=== PATIENT | male | born 1940 | race Caucasian/White ===

== ENCOUNTER 2018-10-05 21:42 | Inpatient (IN) ==
[2018-10-05] MEDS ORDERED: Aspirin 81 MG TAB.CHEW PO ONE (22:06)
[2018-10-05] MEDS ORDERED: Nitroglycerin 0.4 MG TAB.SUBL SL PRN ×2 (22:06→23:59)
--- NOTE | 2018-10-05 22:09 | Emergency Department Note ---
Disposition Clinical Impression: Chest pain Qualifiers: Chest pain type: unspecified Qualified Code(s): R07.9 - Chest pain, unspecified Disposition: Home, Self-Care Condition: Serious Time of Disposition: 23:25 Chest Pain HPI - General Chief Complaint: ED Chest Pain Stated Complaint: Chest Pain Time Seen by Provider: 10/05/18 21:59 Source: patient Mode of arrival: private vehicle Limitations: no limitations Vital Signs Reviewed: Yes Nursing Notes Reviewed: Yes - History of Present Illness HPI Narrative: 78-year-old male with past medical history of quadruple bypass in 2009, 2 stents 2 years ago, a failed stress test 2 weeks ago. Patient states that his chest pressure started sometime after lunch and is accompanied with shortness of breath but no nausea, vomiting, diaphoresis, lightheadedness. He states it is bothersome enough that he does not feel he can do anything. Severity scale (1-10): 0 - Related Data Home Medications Medication Instructions Recorded Confirmed Acetaminophen [Acetaminophen ER] 650 mg PO TID PRN 05/30/17 10/05/18 Aspirin [Lo-Dose Aspirin EC] 81 mg PO DAILY 05/30/17 10/05/18 Insulin Glargine,Hum.rec.anlog 45 unit SQ HS 05/30/17 10/05/18 [Lantus Solostar] Insulin LISPRO [Humalog Kwikpen 20 - 21 unit SQ TID 05/30/17 10/05/18 U-100] Multivitamin with Iron 1 each PO DAILY 05/30/17 10/05/18 [Multivitamins with Iron] Nitroglycerin [Nitrostat] 0.4 mg SL PRN PRN 05/30/17 10/05/18 Oxycodone HCl/Acetaminophen 2 each PO BID 05/30/17 10/05/18 [Percocet 5-325 mg Tablet] Gabapentin [Neurontin] 600 mg PO BID 07/03/17 10/05/18 Metoprolol XL (24 HR) Succ [Toprol 25 mg PO DAILY 07/03/17 10/05/18 Xl] Pantoprazole Sodium [Protonix] 40 mg PO DAILY 07/03/17 10/05/18 Isosorbide MONOnitrate [Isosorbide 60 mg PO DAILY 10/05/18 10/05/18 Mononitrate ER] Allergies Allergy/AdvReac Type Severity Reaction Status Date / Time ciprofloxacin [From Cipro] Allergy Weakness Verified 05/30/17 07:40 rosuvastatin [From Crestor] Allergy Muscle Pain Verified 05/30/17 07:40 Review of Systems: In addition to that documented in the HPI above, the additional ROS was obtained: Constitutional: Denies fevers or chills Eyes: Denies vision changes ENMT: Denies sore throat CV: Reports chest pain Resp: Reports SOB GI: Denies vomiting or diarrhea : Denies painful urination MSK: Denies recent trauma Skin: Denies new rashes Neuro: Denies new numbness or tingling or weakness Endocrine: Denies unexpected weight loss Heme: Denies bleeding disorders Chest Pain PMH - Past Medical History Medical history: Reports: arthritis, cancer, coronary artery disease, diabetes, hyperlipidemia, hypertension, osteoporosis Surgical history: Reports: angioplasty/stent, colectomy, coronary bypass (CABG), herniorrhaphy Psychiatric history: Reports: no psych history - Social History Smoking Status: Never smoker Alcohol use: Reports: none Drug use: Reports: none Physical Exam General: A&O x 3. No acute distress. Appears anxious. Well developed, well nourished. Head: atraumatic, normocephalic. ENT: No conjunctival injection, no scleral icterus. PERRLA. EOMI. Oropharynx non- erythematous. mucous membranes moist. Neuro: No focal deficits, no speech deficit, no facial droop, mentating well. BUE/BLE Str 5/5. Pulm: Lungs CTAB A/P. No wheezes, rales, ronchi. Cardio: RRR no m/r/g. Chest not tender to palpation. Abd: Soft, non-distended. Normoactive bowel sounds. Non-tender to palpation. No guarding. Non rigid. Extremities: Radial pulses 2+ truman, dorsalis pedis/posterior tibialis 2+ truman. No LE edema. No cyanosis, clubbing. Skin: warm, dry, intact. No rashes. Psych: Appropriate mood and affect. Answers questions appropriately. Cooperative with exam. - General Limitations: no limitations General appearance: alert Course - Consultations Consultation #1: Dr diaz who recommended plavix and heparin and that if he had continued pain to activate the [employer] Dr colon asked for transdermal nitro patch for blood pressure control. Time: 23:11 Vital Signs Temperature 98.2 F 10/05/18 21:46 Pulse Rate 83 10/05/18 21:46 Respiratory Rate 19 10/05/18 21:46 Blood Pressure 173/107 10/05/18 21:46 O2 Sat by Pulse Oximetry 97 10/05/18 21:46 Temperature 98.2 F 10/05/18 21:46 Pulse Rate 64 10/05/18 23:55 Respiratory Rate 14 10/05/18 23:55 Blood Pressure 165/85 10/05/18 23:55 O2 Sat by Pulse Oximetry 100 10/05/18 23:55 Oxygen Delivery Oxygen Delivery Room Air Chest Pain - MDM Narrative Medical decision making narrative: 78-year-old male with significant cardiac history presents with chest tightness that has been going on today since after lunch. We will obtain chest x-ray, troponin, basic laboratory workup. EKG is concerning for signs consistent with ischemia we will contact cardiology. Patient's troponin was elevated at 0.44, cardiology wanted the patient to be started on heparin, Plavix, transdermal nitroglycerin. Cardiology did not think that the patient needed to be taken to the catheter lab this evening but they did want to see him in the morning and reevaluate. Patient was admitted to the hospitalist Dr. Garcia who agreed to accept the patient to his service. During the course of treatments patient's chest pain was resolved. Results of the workup including any imaging and/or labwork was shared with the patient at bedside. Patient was given an opportunity to ask questions at bedside and all of their concerns were addressed. Patient verbalized understanding and agreement with plan of care. Pt remained stable while in the department. - Medical Records Medical records reviewed: Yes I reviewed the patient's medical records. - Lab Data Lab results reviewed: Yes I reviewed the patient's lab results. Result diagrams: 10/05/18 22:04 10/05/18 22:04 Lab Results 10/05/18 10/05/18 10/05/18 Range/Units 22:04 22:04 22:04 WBC 6.0 (4.3-11.1) K/mcL RBC 4.36 (4.19-5.50) M/mcL Hgb 13.2 (12.9-16.9) g/dL Hct 40.7 (37.5-50.1) % MCV 93.3 (83.0-100.0) fL MCH 30.3 (28.0-33.3) pg MCHC 32.4 (31.6-35.5) g/dL RDW 12.7 (11.5-14.5) % Plt Count 251 (140-400) K/mcL MPV 9.6 (9.4-12.4) fL Immature Gran % 0.3 (0-4) % Seg Neutrophils % 55.2 % Lymphocytes % 34.1 % Monocytes % 8.3 % Eosinophils % 1.8 % Basophils % 0.3 % Neutrophils # 3.3 (1.6-8.9) K/mcL Lymphocytes # 2.1 (0.6-4.6) K/mcL Monocytes # 0.5 (0.0-1.3) K/mcL Eosinophils # 0.1 (0.0-0.6) K/mcL Basophils # 0.0 (0.0-0.2) K/mcL PT 10.6 (9.4-12.1) Seconds INR 0.9 APTT 32.0 (26.0-36.0) Seconds Heparin Anti-Xa, Unfract 0.02 L (0.30-0.70) IU/mL Sodium (136-145) mEq/L Potassium (3.5-5.1) mEq/L Chloride (98-107) mEq/L Carbon Dioxide (23-29) mEq/L BUN (8-23) mg/dL Creatinine (0.70-1.30) mg/dL Est GFR ( Amer) (> 60) Est GFR (Non-Af Amer) (> 60) BUN/Creatinine Ratio (6-26) Glucose (70-105) mg/dL Calculated Osmolality (280-300) Calcium (8.6-10.3) mg/dL Total Bilirubin 0.1 L (0.3-1.0) mg/dL Direct Bilirubin 0.1 (0.0-0.2) mg/dL Indirect Bilirubin 0.0 (0.0-1.2) mg/dL AST 33 (13-39) Units/L ALT 27 (7-52) Units/L Alkaline Phosphatase 77 (34-104) Units/L Troponin I (< 0.04) ng/mL Serum Total Protein 6.9 (6.4-8.9) g/dL Albumin 4.2 (3.5-5.7) g/dL Globulin 2.7 (2.4-3.5) g/dL Albumin/Globulin Ratio 1.6 (1.1-2.2) Lipase 16 (11-82) Units/L 10/05/18 Range/Units 22:04 WBC (4.3-11.1) K/mcL RBC (4.19-5.50) M/mcL Hgb (12.9-16.9) g/dL Hct (37.5-50.1) % MCV (83.0-100.0) fL MCH (28.0-33.3) pg MCHC (31.6-35.5) g/dL RDW (11.5-14.5) % Plt Count (140-400) K/mcL MPV (9.4-12.4) fL Immature Gran % (0-4) % Seg Neutrophils % % Lymphocytes % % Monocytes % % Eosinophils % % Basophils % % Neutrophils # (1.6-8.9) K/mcL Lymphocytes # (0.6-4.6) K/mcL Monocytes # (0.0-1.3) K/mcL Eosinophils # (0.0-0.6) K/mcL Basophils # (0.0-0.2) K/mcL PT (9.4-12.1) Seconds INR APTT (26.0-36.0) Seconds Heparin Anti-Xa, Unfract (0.30-0.70) IU/mL Sodium 130 L (136-145) mEq/L Potassium 4.2 (3.5-5.1) mEq/L Chloride 99 (98-107) mEq/L Carbon Dioxide 23 (23-29) mEq/L BUN 23 (8-23) mg/dL Creatinine 0.97 (0.70-1.30) mg/dL Est GFR ( Amer) > 60 (> 60) Est GFR (Non-Af Amer) > 60 (> 60) BUN/Creatinine Ratio 24 (6-26) Glucose 266 H (70-105) mg/dL Calculated Osmolality 283 (280-300) Calcium 9.3 (8.6-10.3) mg/dL Total Bilirubin (0.3-1.0) mg/dL Direct Bilirubin (0.0-0.2) mg/dL Indirect Bilirubin (0.0-1.2) mg/dL AST (13-39) Units/L ALT (7-52) Units/L Alkaline Phosphatase (34-104) Units/L Troponin I 0.44 H* (< 0.04) ng/mL Serum Total Protein (6.4-8.9) g/dL Albumin (3.5-5.7) g/dL Globulin (2.4-3.5) g/dL Albumin/Globulin Ratio (1.1-2.2) Lipase (11-82) Units/L - Radiology Data Radiology results reviewed: Yes I reviewed the patient's radiology results. Chest X-Ray 10/05/18 22:06 IMPRESSION: New elevation of right hemidiaphragm when compared to the previous examination on 03/17/2009. No evidence of focal consolidation, pneumothorax, or significant pleural effusion. Left basilar atelectasis and/or scarring. D/ / 10/05/2018 22:44:26 Tadeo Suh MD / fede Interpreting Provider: Tadeo Suh MD - EKG Data EKG attestation: Yes I reviewed and interpreted this EKG. EKG results narrative: 2138: HR 64, rhythm sinus, axis normal. CT 289 and prolonged. QRS 98, QTc 436. 2mm ST elevation in aVR with ST depressions in I, II, V3-V6. 2147: HR 78, rhythm sinus, axis normal. CT 295 and prolonged. QRS 88, QTc 380. 2mm ST elevation in aVR with ST depressions in I, II, aVL, V3-V6. When compared to previous EKG dated 05/30/18, there is first degree block on previous study without any evidence of ST changes. Heart Score - Score History: Highly Suspicious EKG: Significant ST-Depression Age: Greater than 65 Risk Factors: Equal/Greater than 3 risk factor or history of atherosclerotic disease Troponin: Greater than 3x normal limit HEART Score Total: 10 Attestation Statement - Attestation Attestation: I have seen this patient with the resident physician, I have personally evalu ated this patient. I had reviewed the chart and document dictation by the resident physician and aM in agreement with the information documented by the resident physician. Please see documentation by the resident physician for complete chart including past medical history, family medical history, review of systems, current history and physical and laboratory and imaging studies. I was present for all procedures, provided direct supervision for all procedures, was present for the entirety of all procedures and provided direct guidance during the procedures. Please see documentation by the resident physician for any procedures performed. I have reviewed all interpretations of EKGs, and reviewed all EKGs performed on patient's as well. I have also reviewed reports of imaging as provided by radiology.
[2018-10-05 22:23] LABS: Basophils % 0.3 %; Eosinophils # 0.1 K/mcL (0.0-0.6); Eosinophils % 1.8 %; Hematocrit 40.7 % (37.5-50.1); Hemoglobin 13.2 g/dL (12.9-16.9); Immature Granulocytes % 0.3 % (0-4); Lymphocytes # 2.1 K/mcL (0.6-4.6); Lymphocytes % 34.1 %; Mean Corpuscular HGB Conc 32.4 g/dL (31.6-35.5); Mean Corpuscular Hemoglobin 30.3 pg (28.0-33.3); Mean Corpuscular Volume 93.3 fL (83.0-100.0); Mean Platelet Volume 9.6 fL (9.4-12.4); Monocytes # 0.5 K/mcL (0.0-1.3); Monocytes % 8.3 %; Neutrophils # 3.3 K/mcL (1.6-8.9); Platelet Count 251 K/mcL (140-400); Red Blood Count 4.36 M/mcL (4.19-5.50); Red Cell Distribution Width 12.7 % (11.5-14.5); Segmented Neutrophils % 55.2 %
[2018-10-05 22:31] LABS: INR 0.9; Prothrombin Time 10.6 Seconds (9.4-12.1)
[2018-10-05 22:44] LABS: BUN/Creatinine Ratio 24 (6-26); Blood Urea Nitrogen 23 mg/dL (8-23); Calcium 9.3 mg/dL (8.6-10.3); Carbon Dioxide 23 mEq/L (23-29); Chloride 99 mEq/L (98-107); Glucose 266 mg/dL (70-105); Osmolality,Calculated 283 (280-300); Potassium 4.2 mEq/L (3.5-5.1); Sodium 130 mEq/L (136-145); eGFR For African Americans > 60 (> 60); eGFR For Non-African Americans > 60 (> 60)
[2018-10-05 22:47] LABS: Albumin 4.2 g/dL (3.5-5.7); Albumin/Globulin Ratio 1.6 (1.1-2.2); Bilirubin,Direct 0.1 mg/dL (0.0-0.2); Bilirubin,Total 0.1 mg/dL (0.3-1.0); Globulin 2.7 g/dL (2.4-3.5); Total Protein 6.9 g/dL (6.4-8.9)
[2018-10-05 22:48] LABS: Troponin I 0.44 ng/mL (< 0.04)
[2018-10-05] MEDS ORDERED: *HR* Heparin 5,000 UNIT/ML VIAL IVP ONE (22:49)
[2018-10-05] MEDS ORDERED: *HR* Heparin 5,000 UNIT/ML VIAL IVP PRN ×2 (22:49)
[2018-10-05] MEDS ORDERED: Nitroglycerin 0.4 MG PATCH.TD24 TD STA (23:10)
[2018-10-05 23:16] LABS: Heparin anti-factor XA UFH 0.02 IU/mL (0.30-0.70)
--- NOTE | 2018-10-05 23:32 | Emergency Department Note ---
Disposition Clinical Impression: Chest pain Qualifiers: Chest pain type: unspecified Qualified Code(s): R07.9 - Chest pain, unspecified Disposition: Home, Self-Care Condition: Serious Referrals: Flako Solorzano DO [Primary Care Provider] - Forms: ED Satisfaction Letter Time of Disposition: 23:32 Chest Pain HPI - General Chief Complaint: ED Chest Pain Stated Complaint: Chest Pain Time Seen by Provider: 10/05/18 21:59 Source: patient Mode of arrival: private vehicle Limitations: no limitations Vital Signs Reviewed: Yes Nursing Notes Reviewed: Yes - History of Present Illness Severity scale (1-10): 0 - Related Data Home Medications Medication Instructions Recorded Confirmed Acetaminophen [Acetaminophen ER] 650 mg PO TID 05/30/17 07/03/17 Aspirin [Lo-Dose Aspirin EC] 81 mg PO DAILY 05/30/17 07/03/17 Insulin Glargine,Hum.rec.anlog 40 unit SQ HS 05/30/17 07/03/17 [Lantus Solostar] Insulin LISPRO [Humalog Kwikpen 100 unit SQ TID 05/30/17 07/03/17 U-100] Multivitamin with Iron 1 each PO DAILY 05/30/17 07/03/17 [Multivitamins with Iron] Nitroglycerin [Nitrostat] 0.4 mg SL PRN PRN 05/30/17 07/03/17 Oxycodone HCl/Acetaminophen 2 each PO BID 05/30/17 07/03/17 [Percocet 5-325 mg Tablet] Gabapentin [Neurontin] 600 mg PO BID 07/03/17 07/03/17 Metoprolol XL (24 HR) Succ [Toprol 25 mg PO DAILY 07/03/17 07/03/17 Xl] Pantoprazole Sodium [Protonix] 40 mg PO DAILY 07/03/17 07/03/17 Previous Rx's Medication Instructions Recorded Clopidogrel Bisulfate [Plavix] 75 mg PO DAILY #30 tablet 05/30/17 Allergies Allergy/AdvReac Type Severity Reaction Status Date / Time ciprofloxacin [From Cipro] Allergy Weakness Verified 05/30/17 07:40 rosuvastatin [From Crestor] Allergy Muscle Pain Verified 05/30/17 07:40 Chest Pain PMH - Past Medical History Medical history: Reports: arthritis, cancer, coronary artery disease, diabetes, hyperlipidemia, hypertension, osteoporosis Surgical history: Reports: angioplasty/stent, colectomy, coronary bypass (CABG), herniorrhaphy Psychiatric history: Reports: no psych history - Social History Smoking Status: Never smoker Alcohol use: Reports: none Drug use: Reports: none Physical Exam - General Limitations: no limitations General appearance: alert Course Vital Signs Temperature 98.2 F 10/05/18 21:46 Pulse Rate 83 10/05/18 21:46 Respiratory Rate 19 10/05/18 21:46 Blood Pressure 173/107 10/05/18 21:46 O2 Sat by Pulse Oximetry 97 10/05/18 21:46 Temperature 98.2 F 10/05/18 21:46 Pulse Rate 83 10/05/18 21:46 Respiratory Rate 19 10/05/18 21:46 Blood Pressure 159/84 10/05/18 22:20 O2 Sat by Pulse Oximetry 97 10/05/18 21:46 Oxygen Delivery Oxygen Delivery Room Air Chest Pain - Lab Data Result diagrams: 10/05/18 22:04 10/05/18 22:04 Lab Results 10/05/18 10/05/18 10/05/18 Range/Units 22:04 22:04 22:04 WBC 6.0 (4.3-11.1) K/mcL RBC 4.36 (4.19-5.50) M/mcL Hgb 13.2 (12.9-16.9) g/dL Hct 40.7 (37.5-50.1) % MCV 93.3 (83.0-100.0) fL MCH 30.3 (28.0-33.3) pg MCHC 32.4 (31.6-35.5) g/dL RDW 12.7 (11.5-14.5) % Plt Count 251 (140-400) K/mcL MPV 9.6 (9.4-12.4) fL Immature Gran % 0.3 (0-4) % Seg Neutrophils % 55.2 % Lymphocytes % 34.1 % Monocytes % 8.3 % Eosinophils % 1.8 % Basophils % 0.3 % Neutrophils # 3.3 (1.6-8.9) K/mcL Lymphocytes # 2.1 (0.6-4.6) K/mcL Monocytes # 0.5 (0.0-1.3) K/mcL Eosinophils # 0.1 (0.0-0.6) K/mcL Basophils # 0.0 (0.0-0.2) K/mcL PT 10.6 (9.4-12.1) Seconds INR 0.9 APTT 32.0 (26.0-36.0) Seconds Heparin Anti-Xa, Unfract 0.02 L (0.30-0.70) IU/mL Sodium (136-145) mEq/L Potassium (3.5-5.1) mEq/L Chloride (98-107) mEq/L Carbon Dioxide (23-29) mEq/L BUN (8-23) mg/dL Creatinine (0.70-1.30) mg/dL Est GFR ( Amer) (> 60) Est GFR (Non-Af Amer) (> 60) BUN/Creatinine Ratio (6-26) Glucose (70-105) mg/dL Calculated Osmolality (280-300) Calcium (8.6-10.3) mg/dL Total Bilirubin 0.1 L (0.3-1.0) mg/dL Direct Bilirubin 0.1 (0.0-0.2) mg/dL Indirect Bilirubin 0.0 (0.0-1.2) mg/dL AST 33 (13-39) Units/L ALT 27 (7-52) Units/L Alkaline Phosphatase 77 (34-104) Units/L Troponin I (< 0.04) ng/mL Serum Total Protein 6.9 (6.4-8.9) g/dL Albumin 4.2 (3.5-5.7) g/dL Globulin 2.7 (2.4-3.5) g/dL Albumin/Globulin Ratio 1.6 (1.1-2.2) Lipase 16 (11-82) Units/L 10/05/18 Range/Units 22:04 WBC (4.3-11.1) K/mcL RBC (4.19-5.50) M/mcL Hgb (12.9-16.9) g/dL Hct (37.5-50.1) % MCV (83.0-100.0) fL MCH (28.0-33.3) pg MCHC (31.6-35.5) g/dL RDW (11.5-14.5) % Plt Count (140-400) K/mcL MPV (9.4-12.4) fL Immature Gran % (0-4) % Seg Neutrophils % % Lymphocytes % % Monocytes % % Eosinophils % % Basophils % % Neutrophils # (1.6-8.9) K/mcL Lymphocytes # (0.6-4.6) K/mcL Monocytes # (0.0-1.3) K/mcL Eosinophils # (0.0-0.6) K/mcL Basophils # (0.0-0.2) K/mcL PT (9.4-12.1) Seconds INR APTT (26.0-36.0) Seconds Heparin Anti-Xa, Unfract (0.30-0.70) IU/mL Sodium 130 L (136-145) mEq/L Potassium 4.2 (3.5-5.1) mEq/L Chloride 99 (98-107) mEq/L Carbon Dioxide 23 (23-29) mEq/L BUN 23 (8-23) mg/dL Creatinine 0.97 (0.70-1.30) mg/dL Est GFR ( Amer) > 60 (> 60) Est GFR (Non-Af Amer) > 60 (> 60) BUN/Creatinine Ratio 24 (6-26) Glucose 266 H (70-105) mg/dL Calculated Osmolality 283 (280-300) Calcium 9.3 (8.6-10.3) mg/dL Total Bilirubin (0.3-1.0) mg/dL Direct Bilirubin (0.0-0.2) mg/dL Indirect Bilirubin (0.0-1.2) mg/dL AST (13-39) Units/L ALT (7-52) Units/L Alkaline Phosphatase (34-104) Units/L Troponin I 0.44 H* (< 0.04) ng/mL Serum Total Protein (6.4-8.9) g/dL Albumin (3.5-5.7) g/dL Globulin (2.4-3.5) g/dL Albumin/Globulin Ratio (1.1-2.2) Lipase (11-82) Units/L Attestation Statement - Attestation Attestation: I have seen this patient with the resident physician, I have personally evaluated this patient. I had reviewed the chart and document dictation by the resident physician and aM in agreement with the information documented by the resident physician. Please see documentation by the resident physician for complete chart including past medical history, family medical history, review of systems, current history and physical and laboratory and imaging studies. I was present for all procedures, provided direct supervision for all procedures, was present for the entirety of all procedures and provided direct guidance during the procedures. Please see documentation by the resident physi cortes for any procedures performed. I have reviewed all interpretations of EKGs, and reviewed all EKGs performed on patient's as well. I have also reviewed reports of imaging as provided by radiology. Patient presents emergency Department with chief complaint of chest pain that started while he was doing work in the yard. He has been having some increased exertional symptoms, and had a stress test as an outpatient about 3 weeks ago that was abnormal. States that today his pain started while he was working, did not go away of immediately with rest he took 2 nitroglycerin which did not make it go away but started to improve it and then now it is gone now that he has been resting. He states no significant persistent symptoms he did get short of breath with this. He states this feels like with her problems with his heart in the past. He is status post coronary artery bypass graft in the past as well as stenting in the past. He is not currently on Plavix, this was stopped a couple of months ago after he completed a year of Plavix. The patient states he does have drug eluting stents to the best of his knowledge. On presentation his initial EKG was concerning, demonstrated ST elevation in lead aVR but isolated in lead aVR but with new ST depressions in leads 1 and 2 as well as V3 through V6, no other ST elevation is noted only isolated in aVR the patient is asymptomatic upon presentation, findings could be concerning for acute ST segment elevation myocardial infarction secondary to reciprocal change along with elevation in aVR which is new from prior EKG, however patient is currently symptom-free I did initially immediately attempt to call the listed fashion model on-call for interventional cardiology to have them review the EKG especially in the face of a recent abnormal stress test, unfortunately the listed fashion model was not the fashion model that was actually on-call for interventional and we were unable to get ahold of him I then contacted general cardiology spoke with Dr. Fernandez, states that with the patient being symptom free and it only being elevation in aVR, that this is likely not something that they would take immediately to the cardiac catheterization lab, however states that there was some changes to the call list and he believes that Dr. Quinn is partition making machine operator for interventional and to try and get ahold of him to discuss this, he does recommend that I give the patient 300 mg of Plavix along with the IV heparin we had already initiated. I was able to get ahold of Dr. Quinn with interventional cardiology as well as get a repeat EKG repeat EKG shows interval slight improvement with decreased ST elevation in aVR and decreased ST depression in leads as noted previously. Discussed the symptoms with Dr. Quinn, and findings with Dr. Quinn, reviewed his prior cardiac catheterization and recent stress test, Dr. Quinn is in agr eement with the heparin as already initiated through the IV as well as with the Plavix as recommended by his colleague, he states that because the patient does have some hypertension that he would recommend starting him on a nitroglycerin patch, states that he would not consider this to be consistent with acute ST segment elevation myocardial infarction at this time, would recommend that the patient be admitted to the hospitalist service, who can contact him with any concerns overnight. Laboratory studies were all within acceptable limits except for a troponin of 0.44 already being managed as non-ST segment elevation myocardial infarction/unstable angina. Patient admitted to medicine for further management. Total critical care time as provided by myself excluding any procedures performe d was 50 minutes. remained completely symptom free here in the ER.
[2018-10-05] MEDS: Heparin 25,000 UNIT/250 ML D5W 25,000 UNIT/250 ML IV.SOLN IVC SCH (23:43)
[2018-10-06] MEDS ORDERED: traMADol 50 MG TABLET PO PRN (00:02)
[2018-10-06] MEDS ORDERED: Acetaminophen 325 MG TABLET PO PRN (00:02)
[2018-10-06] MEDS ORDERED: Dextrose Gel 15 GM/37.5 ML TUBE PO PRN ×2 (00:03)
[2018-10-06] MEDS ORDERED: *HR* Dextrose 50 % in Water (Syg) 50 ML SYRINGE IVP PRN (00:03)
--- NOTE | 2018-10-06 00:53 | Internal Med History&Physical ---
Date of Encounter: 10/05/18 Time of Encounter: 23:59 Internal Medicine - H&P: HPI Chief complaint: chest pain Admitted From: Home Plans for Post Hospital Care: Home History of present illness: Mohamud Beltre is a 78-year-old man with diabetes and coronary artery disease who underwent quadruple bypass in 2009, had 2 stents placed in May 2017 and 1 month ago underwent nuclear stress test that showed a medium-sized, partially fixed perfusion defect involving the inferior segment suggestive of prior infarct as well as worsening perfusion in the inferior/inferolateral bonilla consistent with reversible ischemia. He presented to the emergency room today complaining of chest pain that started after lunch time while he was walking around accompanied by dyspnea. He described it as a pressure sensation that was fixed and nonradiating, unaccompanied by diaphoresis, lightheadedness or cough. He says he usually gets chest pain with moderate exertion but typically resolves with rest. This time around it persisted over time and did not get relief with 2 doses of sublingual nitroglycerin. EKG revealed normal sinus rhythm with ST depressions in the lateral leads with ST elevation in aVR. Cardiology service was consulted with the recommendation of starting dual antiplatelet therapy loading dose, heparin drip and topical nitroglycerin. He is admitted for further care. At this time he reports feeling better than at the time of arrival and is now chest pain free. Vitals: Reviewed General: Well-developed elderly man lying comfortably in bed in NAD Skin: Warm and supple. HEENT: Moist mucous membranes. No conjunctivae pallor. Neck: No lymphadenopathy. No JVD. No carotid bruits. No palpable thyroid. Chest: Normal thoracic expansion. Normal breath sounds. Clear to auscultation. Heart: Normal S1 & S2; rhythmic. No rubs or murmurs. Abdomen: Non-distended, soft and non-tender to palpation. No peritoneal reaction. Extremities: No clubbing, cyanosis or edema. No calf tenderness. Normal distal pulses. Neurological: Awake, alert and oriented to person, place and time. No focal deficits. Psych: Affect appropriate. Assessment/Plan 1. Acute coronary syndrome: As evidenced by NSTEMI in a patient with known CAD and is at high risk for infarction based on prior studies. We will keep him NPO, continued cardiac monitoring, serial EKGs to ensure there is no progression. If chest pain recurs while on heparin drip, may need morphine/nitroglycerin drip for relief and consideration for urgent catheterization. 2. Diabetes: Poorly controlled with an A1C of 8.3%. Will keep on insulin sliding scale for now. 3. Hypertension: Uncontrolled. Not usually on antihypertensive therapy. Currently receiving nitrates to assist in lowering BP. 4. Osteoarthritis: On analgesics as needed. Past Med Surg Social Fam HX - Past Medical History Medical history: arthritis, cancer, coronary artery disease, diabetes, hyperlipidemia, hypertension, osteoporosis Additional medical history: skin cancer, ischemic heart disease, ASCVD, BPH, OA, insomnia, skin cancer, LUTS Psychiatric history: no psych history - Past Surgical History Surgical History: angioplasty/stent, colectomy, coronary bypass (CABG), herniorrhaphy Additional surgical history: Colon resection - Social History Smoking Status: Never smoker Smokeless Tobacco Status: No Alcohol use: none Drug use: none - Family History Father Living Status: Hx Family Cardiac Disorders: Yes (brother,father,sister,daughter) Hx Family Respiratory Disorders: No Hx Family Cancer: Yes (mother) Hx Family GI Disorders: No Hx Family Endocrine Disorder: Yes (mother) Hx Family Neuromuscular Disorders: No Hx Family Neurologic Disorders: No Hx Family HEENT Disorders: No Hx Family Autoimmune Disorders: No Internal Medicine - H&P: Meds Acetaminophen [Acetaminophen ER] 650 mg PO TID PRN 05/30/17 [History] Aspirin [Lo-Dose Aspirin EC] 81 mg PO DAILY 05/30/17 [History] Insulin Glargine,Hum.rec.anlog [Lantus Solostar] 45 unit SQ HS 05/30/17 [History] Insulin LISPRO [Humalog Kwikpen U-100] 20 - 21 unit SQ TID 05/30/17 [History] Multivitamin with Iron [Multivitamins with Iron] 1 each PO DAILY 05/30/17 [History] Nitroglycerin [Nitrostat] 0.4 mg SL PRN PRN 05/30/17 [History] Oxycodone HCl/Acetaminophen [Percocet 5-325 mg Tablet] 2 each PO BID 05/30/17 [History] Gabapentin [Neurontin] 600 mg PO BID 07/03/17 [History] Metoprolol XL (24 HR) Succ [Toprol Xl] 25 mg PO DAILY 07/03/17 [History] Pantoprazole Sodium [Protonix] 40 mg PO DAILY 07/03/17 [History] Isosorbide MONOnitrate [Isosorbide Mononitrate ER] 60 mg PO DAILY 10/05/18 [History] Allergy/AdvReac Type Severity Reaction Status Date / Time ciprofloxacin [From Cipro] Allergy Weakness Verified 05/30/17 07:40 rosuvastatin [From Crestor] Allergy Muscle Pain Verified 05/30/17 07:40 All Systems PM: A 10-system review of systems was performed and is negative for pertinent findings except as documented above in the HPI. - Constitutional Vitals: Temp Pulse Resp BP Pulse Ox 98.2 F 64 14 165/85 100 10/05/18 21:46 10/05/18 23:55 10/05/18 23:55 10/05/18 23:55 10/05/18 23:55 Exam: . Internal Med - H&P Results - Labs CBC & Chem 7: 10/05/18 22:04 10/05/18 22:04 Labs: Short CBC 10/05/18 Range/Units 22:04 WBC 6.0 (4.3-11.1) K/mcL Hgb 13.2 (12.9-16.9) g/dL Hct 40.7 (37.5-50.1) % Plt Count 251 (140-400) K/mcL Neutrophils # 3.3 (1.6-8.9) K/mcL BMP 10/05/18 22:04 Sodium 130 L Potassium 4.2 Chloride 99 Carbon Dioxide 23 BUN 23 Creatinine 0.97 Glucose 266 H Calcium 9.3 Cardiac Enzymes 10/05/18 Range/Units 22:04 Troponin I 0.44 H* (< 0.04) ng/mL Liver Function 10/05/18 Range/Units 22:04 Total Bilirubin 0.1 L (0.3-1.0) mg/dL Direct Bilirubin 0.1 (0.0-0.2) mg/dL AST 33 (13-39) Units/L ALT 27 (7-52) Units/L Alkaline Phosphatase 77 (34-104) Units/L Albumin 4.2 (3.5-5.7) g/dL - Impressions ITS Impressions Chest X-Ray 10/05/18 22:06 IMPRESSION: New elevation of right hemidiaphragm when compared to the previous examination on 03/17/2009. No evidence of focal consolidation, pneumothorax, or significant pleural effusion. Left basilar atelectasis and/or scarring. D/ / 10/05/2018 22:44:26 Tadeo Suh MD / chao Interpreting Provider: Tadeo Suh MD - Time Spent With Patient Total time spent is greater than 50% in coordination of care (as documented) at patient's floor/unit and/or counseling patient:
[2018-10-06] MEDS: Insulin LISPRO 300 UNITS/3 ML VIAL SQ SCH ×3 (06:13→17:51)
[2018-10-06] MEDS: Aspirin Enteric Coated 81 MG Tablet PO SCH (09:02)
[2018-10-06] MEDS: Gabapentin 300 MG CAPSULE PO SCH ×2 (09:02→20:22)
[2018-10-06] MEDS: Isosorbide MONOnitrate (24 HR) 30 MG TAB.ER.24H PO SCH (09:02)
[2018-10-06] MEDS: Multivit/Ca/Min/Fe/FA 1 TAB TABLET PO SCH (09:02)
[2018-10-06] MEDS: Metoprolol XL (24 HR) Succ 25 MG TAB.ER.24H PO SCH (09:02)
--- NOTE | 2018-10-06 11:32 | Cardiology Consult Note ---
Date of Encounter: 10/06/18 Time of Encounter: 11:24 Assessment and Plan (1) CAD in [place] artery Current Visit: Yes Status: Acute (2) NSTEMI (non-ST elevated myocardial infarction) Current Visit: Yes Status: Acute History of CAD, prior CABG. C performed in 2018, medical therapy recommended at that time. Recent stress test performed, which demonstrated a prior infarct, residual is chemia in an area of known severe CAD. Describes increasing shortness of breath, chest discomfort over the past few days. ECG demonstrates lateral ST and T-wave changes suggestive of ischemia, new com pared to ECGs from 2018. Overall, patient reports he feels better. Non-ST segment elevation myocardial infarction. Continue ACS therapy, including aspirin/Plavix, heparin, statin, and beta marci therapy. Continue Imdur that was recently started as outpatient. Echocardiogram. The risks, benefits, and alternatives to cardiac catheterization were discussed. Patient is agreeable. If intervention is to be performed, consider PTCA following or bare-metal stent given possible need for upcoming pancreatic procedure. Patient is scheduled to see physician at [facility] regarding pancreatic mass this Thrusday. Discussion w patient/family: The assessment and plan as outlined above was discussed with the patient and/or family members who expressed understanding and agreement. All questions were answered. Thank you for involving us in the care of your patient. Please call with any questions. History of Present Illness Consult date: 10/06/18 Requesting physician: Michael Easley Consult reason: Chest pain Chief complaint: Chest pain History of present illness: Mr. Beltre is a 78 year old male with a history of diabetes, CAD, prior CABG in 2009, prior PCI 2017. Stress test performed one month ago demonstrated evidence of an inferior infarct with mild vini-infarct ischemia. Patient seen by cardiology in the office in September. Findings of stress test reviewed. Given pending evaluation for pancreatic mass, decision was made to proceed with medical therapy. Today, patient reports increasing shortness of breath and exertional fatigue over the past few days. Scribed intermittent chest discomfort, described as a pressure sensation. Yesterday, symptoms seem to be persistent throughout the day. In the afternoon, he took a sublingual nitroglycerin without improvement. A few hours later, he took a second sublingual nitroglycerin, again without improvement. He finally decided to come to the hospital. Since admission, reports his symptoms have improved with medical therapy. Increase in troponin noted. Previous testing: Medium size, partially fixed perfusion defect involving the inferior segment suggestive of prior infarct. There is mild worsening of perfusion in the inferior and inferolateral segments consistent with reversible ischemia. ECG was nondiagnostic due to baseline ST and T-wave changes. Gated EF greater than 70%. [facility] 05/2017: Left main normal. LAD proximal 100% stenosis. Circumflex mid 80% s tenosis, JA placed, distal 50% stenosis. OM ostial 100% stenosis, fills via remnants of vein graft attached L PDA. L PDA 80% stenosis. RCA proximal 90% stenosis. SVG to OM1, OM 2 occluded. SVG to D1 80% stenosis, JA placed. HADDAD to mid LAD patent, provides collaterals to RPDA. TTE 09/07/2015: LVEF 60-65%. Normal LV, RV size and function. Mild to moderate left atrial enlargement. No significant valvular dysfunction. RVSP 35 mmHg. Past Med Surg Social Fam HX - Past Medical History Medical history: arthritis, cancer, coronary artery disease, diabetes, hyperlipidemia, hypertension, osteoporosis Additional medical history: skin cancer, ischemic heart disease, ASCVD, BPH, OA, insomnia, skin cancer, LUTS Psychiatric history: no psych history - Past Surgical History Surgical History: angioplasty/stent, coronary bypass (CABG), herniorrhaphy Additional surgical history: Colon resection - Social History Smoking Status: Never smoker Smokeless Tobacco Status: No Alcohol use: none Drug use: none - Family History Father Living Status: Hx Family Cardiac Disorders: Yes (brother,father,sister,daughter) Hx Family Respiratory Disorders: No Hx Family Cancer: Yes (mother) Hx Family GI Disorders: No Hx Family Endocrine Disorder: Yes (mother) Hx Family Neuromuscular Disorders: No Hx Family Neurologic Disorders: No Hx Family HEENT Disorders: No Hx Family Autoimmune Disorders: No Medications and Allergies Acetaminophen [Acetaminophen ER] 650 mg PO TID PRN 05/30/17 [History] Aspirin [Lo-Dose Aspirin EC] 81 mg PO DAILY 05/30/17 [History] Insulin Glargine,Hum.rec.anlog [Lantus Solostar] 45 unit SQ HS 05/30/17 [History] Insulin LISPRO [Humalog Kwikpen U-100] 20 - 21 unit SQ TID 05/30/17 [History] Multivitamin with Iron [Multivitamins with Iron] 1 each PO DAILY 05/30/17 [History] Nitroglycerin [Nitrostat] 0.4 mg SL PRN PRN 05/30/17 [History] Oxycodone HCl/Acetaminophen [Percocet 5-325 mg Tablet] 2 each PO BID 05/30/17 [History] Gabapentin [Neurontin] 600 mg PO BID 07/03/17 [History] Metoprolol XL (24 HR) Succ [Toprol Xl] 25 mg PO DAILY 07/03/17 [History] Pantoprazole Sodium [Protonix] 40 mg PO DAILY 07/03/17 [History] Isosorbide MONOnitrate [Isosorbide Mononitrate ER] 60 mg PO DAILY 10/05/18 [History] Allergy/AdvReac Type Severity Reaction Status Date / Time ciprofloxacin [From Cipro] Allergy Weakness Verified 05/30/17 07:40 rosuvastatin [From Crestor] Allergy Muscle Pain Verified 05/30/17 07:40 All Systems Review: The remainder of the systems were reviewed and are negative - Cardiovascular Cardiovascular: as per HPI, chest pain at rest, chest pain with exertion, dyspnea on exertion - Respiratory Respiratory: dyspnea Physical Examination Vital Signs, Last 4 Hours Temp Pulse Resp BP Pulse Ox 10/06/18 10:50 97.9 F 61 16 110/69 95 General: Conversant, No Apparent Distress HEENT: Atraumatic, Normocephaly, Mucus Membranes Moist Neck: No JVD, Normal carotid pulses Cardiac: Reg Rate and Rhythm, Normal S1 and S2, No Murmur Lungs: Normal Breath Sounds, No Wheeze, Rales, Rhonchi Neuro: Alert and responsive, No focal deficits noted Abdomen: Soft, Non-Tender Skin: No rashes noted on visualized skin Musculoskeletal: No Chest Wall Tenderness Extremities: No Clubbing, No Cyanosis, No Edema Results 10/05/18 22:04 10/05/18 22:04 Lab Results 10/05/18 10/05/18 10/05/18 22:04 22:04 22:04 WBC 6.0 Hgb 13.2 Hct 40.7 Plt Count 251 INR 0.9 APTT 32.0 Sodium Potassium Chloride Carbon Dioxide BUN Creatinine Glucose Calcium Total Bilirubin 0.1 L AST 33 ALT 27 Alkaline Phosphatase 77 Troponin I Lipase 16 0810/06/18 10/06/18 22:04 03:45 08:07 WBC Hgb Hct Plt Count INR APTT Sodium 130 L Potassium 4.2 Chloride 99 Carbon Dioxide 23 BUN 23 Creatinine 0.97 Glucose 266 H Calcium 9.3 Total Bilirubin AST ALT Alkaline Phosphatase Troponin I 0.44 H* 1.44 H* 2.33 H* Lipase - Imaging and Cardiology Stress Test: report reviewed Echo: report reviewed Cardiac cath: report reviewed - EKG Interpretation EKG results cardiology: personally reviewed Consult Discharge Plan - Plan Referrals: Flako Solorzano DO [Primary Care Provider] -
[2018-10-06] MEDS ORDERED: Perflutren Lipid Microsphere 1.3 ML in 0.9 % Sodium Chloride 8.7 ML IVP ONE (12:25)
--- NOTE | 2018-10-06 12:33 | Internal Med Progress Note ---
Hospitalist Progress Note - Encounter Date of Encounter: 10/06/18 Time of Encounter: 12:31 - Subjective Interval History: Chest pain-free this morning. Says that he gets chest pain very infrequently, less than once every few months. Cardiology consulting and will likely do [facility] - Exam Vitals: Temp Pulse Resp BP Pulse Ox 97.9 F 61 16 110/69 95 10/06/18 10:50 10/06/18 10:50 10/06/18 10:50 10/06/18 10:50 10/06/18 10:50 Exam: General: Ill-appearing and in no acute distress HEENT: No erythema of posterior pharynx. No exudates. Lymphatics: No mandibular or cervical lymphadenopathy Cardiovascular: RRR. No murmurs. No chest wall tenderness. Lungs: Clear to auscelltation bilaterally. Regular chest rise. Abdomen: Non-tender. No rebound or gaurding. Nl bowel sounds. Extremities: No edema. 2+ pulses radial and pedal pulses Skin: No rahses, abrasions, or contusions. Nl cap refill. Psych: Nl attention. A&Ox3 Neuro: log loader helper II-XII intact. 5/5 strength. Sensation to light touch and pinprick intact. - Assessment and Plan (1) NSTEMI (non-ST elevated myocardial infarction) Current Visit: Yes Status: Acute Assessment and Plan: Patient with history of CAD status post CABG in 2010 and 2 stents in 2018 with recent nuclear stress test with evidence of reversible ischemia presents with chest tightness on exertion in the setting of stable vitals, unremarkable physical exam, and troponin elevation. -Likely type I and NSTEMI -Started on heparin drip and loaded with dual antiplatelets on admission -Clinically stable and now chest pain-free -Cardiology consultation and will likely take patient for [facility] PLAN: - Likely [facility] - cardiology discussing this with patient - Heparin ggt and Plavix - Continue home ASA, statin, Metoprolol, and Imdur (2) CAD (coronary artery disease) of bypass graft Current Visit: Yes Status: Acute Assessment and Plan: History of CAD status post CABG in 2009 and 2 stents in 2018 with recent nuclear stress test with evidence of reversible ischemia. - Interventions per above (3) Diabetes Current Visit: Yes Status: Acute Assessment and Plan: On insulin outpatient. - Sliding scale while nothing by mouth - We will restart home long-acting insulin after procedure today if no longer NPO DVT Prophylaxis: heparin ggt Internal Medicine: Result - Labs CBC & Chem 7: 10/05/18 22:04 10/05/18 22:04 Labs: Short CBC 10/05/18 Range/Units 22:04 WBC 6.0 (4.3-11.1) K/mcL Hgb 13.2 (12.9-16.9) g/dL Hct 40.7 (37.5-50.1) % Plt Count 251 (140-400) K/mcL Neutrophils # 3.3 (1.6-8.9) K/mcL BMP 10/05/18 22:04 Sodium 130 L Potassium 4.2 Chloride 99 Carbon Dioxide 23 BUN 23 Creatinine 0.97 Glucose 266 H Calcium 9.3 Cardiac Enzymes 10/05/18 10/06/18 10/06/18 Range/Units 22:04 03:45 08:07 Troponin I 0.44 H* 1.44 H* 2.33 H* (< 0.04) ng/mL Liver Function 10/05/18 Range/Units 22:04 Total Bilirubin 0.1 L (0.3-1.0) mg/dL Direct Bilirubin 0.1 (0.0-0.2) mg/dL AST 33 (13-39) Units/L ALT 27 (7-52) Units/L Alkaline Phosphatase 77 (34-104) Units/L Albumin 4.2 (3.5-5.7) g/dL - ABG Interpretation ABG results: PT/INR, D-dimer PT 10.6 Seconds (9.4-12.1) 10/05/18 22:04 - Impressions Impressions Chest X-Ray 10/05/18 22:06 IMPRESSION: 1. New elevation of right hemidiaphragm when compared to the previous examination on 03/17/2009. 2. No evidence of focal consolidation, pneumothorax, or significant pleural effusion. Left basilar atelectasis and/or scarring. D/ / 10/05/2018 22:44:26 Tadeo Suh MD / chao Interpreting Provider: Tadeo Shu MD Consult Discharge Plan - Plan Referrals: Flako Solorzano DO [Primary Care Provider] -
[2018-10-06] MEDS: Insulin DETEMIR 100 UNIT/ML X5UNITS SQ SCH ×2 (17:54→20:22)
[2018-10-06] MEDS ORDERED: *HR* OxyCODONE Immed Rel 5 MG TABLET PO ONE (21:16)
[2018-10-07] MEDS: Heparin 25,000 UNIT/250 ML D5W 25,000 UNIT/250 ML IV.SOLN IVC SCH (00:33)
[2018-10-07] MEDS: Insulin LISPRO 300 UNITS/3 ML VIAL SQ SCH ×5 (00:56→22:31)
[2018-10-07 01:17] LABS: BUN/Creatinine Ratio 20 (6-26); Blood Urea Nitrogen 20 mg/dL (8-23); Calcium 9.5 mg/dL (8.6-10.3); Carbon Dioxide 27 mEq/L (23-29); Chloride 101 mEq/L (98-107); Glucose 198 mg/dL (70-105); Osmolality,Calculated 286 (280-300); Potassium 4.4 mEq/L (3.5-5.1); Sodium 134 mEq/L (136-145); eGFR For African Americans > 60 (> 60); eGFR For Non-African Americans > 60 (> 60)
[2018-10-07] MEDS: Gabapentin 300 MG CAPSULE PO SCH ×2 (08:15→21:02)
[2018-10-07] MEDS: Isosorbide MONOnitrate (24 HR) 30 MG TAB.ER.24H PO SCH (08:15)
[2018-10-07] MEDS: Aspirin Enteric Coated 81 MG Tablet PO SCH (08:15)
[2018-10-07] MEDS: Multivit/Ca/Min/Fe/FA 1 TAB TABLET PO SCH (08:15)
[2018-10-07] MEDS: Metoprolol XL (24 HR) Succ 25 MG TAB.ER.24H PO SCH (08:16)
[2018-10-07] MEDS ORDERED: *HR* OxyCODONE/APAP 5/325 TABLET PO SCH (09:00)
[2018-10-07] MEDS: *HR* OxyCODONE/APAP 5/325 TABLET PO SCH ×2 (11:02→21:02)
--- NOTE | 2018-10-07 12:15 | Event Note ---
Date of Encounter: 10/07/18 Time of Encounter: 12:00 - Cardiology Event Note ECHO: Impressions: LVEF 55-60%. Mild left ventricular diastolic dysfunction. Moderate concentric left ventricular hypertrophy. Normal right ventricular structure and function. Mild mitral regurgitation. No evidence of pulmonary hypertension. Left Ventricular Wall Motion: Rest Echo Findings The mid inferior lateral wall was not visualized. All other wall segments showed normal motion. Laboratory Tests 10/05/18 10/06/18 10/06/18 22:04 03:45 08:07 Creatinine Est GFR (Non-Af Amer) Troponin I 0.44 H* 1.44 H* 2.33 H* 10/07/18 00:44 Creatinine 0.98 Est GFR (Non-Af Amer) > 60 Troponin I Currently chest pain-free. Discussed and reviewed with patient and are agreeable to catheterization. Discussed with Dr. Katz, for catheterization today. If stenting warranted, consider bare metal stent due to pending evaluation later this week for pancreatic mass. HAS-BLED Score - Score Elderly: Age>65 years Medication usage predisposing to bleeding: Antiplatelet agents, NSAIDs Score: 2
[2018-10-07] MEDS ORDERED: 0.9 % Sodium Chloride 1,000 ML ONE (13:37)
[2018-10-07] MEDS ORDERED: *HR* Heparin 10,000 UNIT/10 ML VIAL ONE (13:37)
[2018-10-07] MEDS ORDERED: Heparin 1,000 UNITS/500 mL 500 ML ONE (13:37)
[2018-10-07] MEDS ORDERED: Nitroglycerin 1,000 MCG/10 ML VIAL IV ONE (13:38)
[2018-10-07] MEDS ORDERED: ISOVUE-370 200 ML INFUS..BTL ONE (13:38)
[2018-10-07] MEDS ORDERED: *HR* Midazolam HCl 2 MG/2 ML VIAL ONE (13:57)
[2018-10-07] MEDS ORDERED: *HR* FentaNYL (PF) 100 MCG/2 ML VIAL ONE (13:57)
--- NOTE | 2018-10-07 14:06 | Electrocardiograph Report ---
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
--- NOTE | 2018-10-07 14:06 | Electrocardiograph Report ---
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
--- NOTE | 2018-10-07 15:43 | Event Note ---
Date of Encounter: 10/07/18 Time of Encounter: 15:45 - Cardiology Event Note Per discussion with Dr. Katz, s/p JA to mid circ. Will follow.
--- NOTE | 2018-10-07 17:53 | Internal Med Progress Note ---
Hospitalist Progress Note - Encounter Date of Encounter: 10/07/18 Time of Encounter: 17:50 - Subjective Interval History: Had some hip pain this morning but resolved after restarting his home pain medications. No further chest pain. [facility] treated today with JA to mid circumflex. - Exam Vitals: Temp Pulse Resp BP Pulse Ox 97.4 F L 63 16 122/48 94 10/07/18 11:17 10/07/18 11:17 10/07/18 11:17 10/07/18 11:17 10/07/18 11:17 Exam: General: Ill-appearing and in no acute distress HEENT: No erythema of posterior pharynx. No exudates. Lymphatics: No mandibular or cervical lymphadenopathy Cardiovascular: RRR. No murmurs. No chest wall tenderness. Lungs: Clear to auscelltation bilaterally. Regular chest rise. Abdomen: Non-tender. No rebound or gaurding. Nl bowel sounds. Extremities: No edema. 2+ pulses radial and pedal pulses Skin: No rahses, abrasions, or contusions. Nl cap refill. Psych: Nl attention. A&Ox3 Neuro: bee keeper II-XII intact. 5/5 strength. Sensation to light touch and pinprick intact. - Assessment and Plan (1) NSTEMI (non-ST elevated myocardial infarction) Current Visit: Yes Status: Acute Assessment and Plan: Patient with history of CAD status post CABG in 2010 and 2 stents in 2018 with recent nuclear stress test with evidence of reversible ischemia presents with chest tightness on exertion in the setting of stable vitals, unremarkable physical exam, and troponin elevation. -Likely type I and NSTEMI -Started on heparin drip and loaded with dual antiplatelets on admission -Clinically stable and now chest pain-free -Cardiology consultation and will likely take patient for [facility] with JA to mid circumflex. PLAN: - Heparin ggt and Plavix - Continue home ASA, statin, Metoprolol, and Imdur - Cardiology following, appreciate recommendations (2) CAD (coronary artery disease) of bypass graft Current Visit: Yes Status: Acute Assessment and Plan: History of CAD status post CABG in 2010 and 2 stents in 2018 with recent nuclear stress test with evidence of reversible ischemia. - Interventions per above (3) Diabetes Current Visit: Yes Status: Acute Assessment and Plan: On insulin outpatient. - Detemir 30U and SS DVT Prophylaxis: heparin ggt Internal Medicine: Result - Labs CBC & Chem 7: 10/05/18 22:04 10/07/18 00:44 Labs: BMP 10/07/18 00:44 Sodium 134 L Potassium 4.4 Chloride 101 Carbon Dioxide 27 BUN 20 Creatinine 0.98 Glucose 198 H Calcium 9.5 - ABG Interpretation ABG results: PT/INR, D-dimer PT 10.6 Seconds (9.4-12.1) 10/05/18 22:04 - Impressions Impressions Echocardiogram 10/06/18 00:01 Impressions: LVEF 55-60%. Mild left ventricular diastolic dysfunction. Moderate concentric left ventricular hypertrophy. Normal right ventricular structure and function. Mild mitral regurgitation. No evidence of pulmonary hypertension. Left Ventricular Wall Motion: Rest Echo Findings The mid inferior lateral wall was not visualized. All other wall segments showed normal motion. Findings: Study Quality * Technically adequate exam. ECG Findings * Sinus rhythm with BBB. Left Ventricle * LVEF 55-60%. * Mild left ventricular diastolic dysfunction. * Moderate concentric left ventricular hypertrophy. * Normal LV chamber size. * Atypical septal motion consistent with bundle branch block. Right Ventricle * Normal right ventricular structure and function. Left Atrium * Mildly dilated left atrium. Right Atrium * Normal right atrial size. Aortic Valve * Trileaflet aortic valve. * Mildly sclerotic aortic valve leaflets. * No aortic regurgitation. * No aortic stenosis. Mitral Valve * Moderate mitral annular calcification * No mitral stenosis. * Mild mitral regurgitation. Tricuspid Valve * Trace tricuspid regurgitation. * No evidence of pulmonary hypertension. * No tricuspid stenosis. * Normal tricuspid valve structure. Pulmonic Valve * Pulmonic valve not well visualized. Aorta * Normally sized aortic root. Pericardium * The pericardium appears normal. IVC * The IVC is not well evaluated. Consult Discharge Plan - Plan Referrals: Flako Solorzano DO [Primary Care Provider] -
--- NOTE | 2018-10-07 18:12 | Electrocardiograph Report ---
[address] [place], [place] [address] Test Date: 2018-10-05 Pat Name: Mohamud Beltre Department: EXAM16 Room: 2NE26 Gender: M Step Down Specialist: : 1940 Requested By: Noah Elias Order Number: [id number] Reading MD: Brie Raymundo Measurements Intervals [place] Rate: 78 P: 47 HI: 295 QRS: 33 QRSD: 88 T: 201 QT: 333 QTc: 380 Interpretive Statements Sinus rhythm with 1st degree AVB Repol abnrm, severe global ischemia (LM/MVD) Electronically Signed On 10-07-2018 18:11:18 EDT by Brie Raymundo
--- NOTE | 2018-10-07 18:13 | Invasive Diagnostic Lab Proc ---
Name: Mohamud Beltre Date of Study: 10/07/2018 Date: 1940 Ht: 68.9in Medical Record#: [id number] Age: 78 Wt: 205.03lb Gender: Male BSA: 2.09 Order #: [id number] BMI: 30.37 Physicians Procedure Physician: Baldemar Katz MD, [facility] Referring MD: Referring MD: Staff Name Position Time In Sites, Jazmine RT (R) Monitor 01:57 PM Yesica Rodríguez RT (R) Airplane Woodworker 01:58 PM Jeffrey Wood RN Airplane Woodworker 01:58 PM Indications Indication Non-Stemi Procedures Performed Procedure L HRT ART/GRFT ANGIO PRQ CARD BM STENT W/ANGIO 1 VSL Pre-Procedure Checklist Informed consent is complete signed and on chart. H&P is on chart. ID band is on and ID verified with patient. Patient NPO for procedure The procedure was described for the patient and questions were answered. Blood Pressure: 122/48 ECG is on chart. Rhythm: NSR Plan of Care Patient will tolerate the procedure without complications. Adequate level of comfort will be maintained. Hemodynamics will remain stable Patient will recover from procedure without complications. Respiratory function will be maintained. Cardiac rhythm will remain stable. Patient temperature will be maintained. Patient and/or family have verbalized understanding of the procedure. Patient Education Chief Complaint/Reason for Test: Cardiac Cath Developmental Category: Geriatric (65+ years) Developmentally Appropriate for Age: Yes Learning Barriers: None Education Needs: Procedure Education Method: Verbal Information Taught: Cardiac Cath Educational Evaluation: Able to repeat information Intravenous Access Time IV Size Location DC'd Fluid/Drip Rate Units RN 20g 1 03/08" Patent On Arrival Lt Antecubital 0.9NaCl 50 ml/hr Jeffrey Wood RN Allergies ciprofloxacin rosuvastatin Vital Signs Time BP (mmHg) HR (bpm) O2 Sat. RR (bpm) LOC 122 / 48 63 95 % 16 5 = Fully awake and oriented or at pre-proc level 01:59 PM / % 5 = Fully awake and oriented or at pre-proc level 01:59 PM / % 5 = Fully awake and oriented or at pre-proc level 02:14 PM / % 5 = Fully awake and oriented or at pre-proc level 02:02 PM 148 / 80 72 97 % 15 02:06 PM 140 / 81 72 98 % 14 02:11 PM 109 / 73 77 97 % 26 02:17 PM 140 / 81 56 97 % 17 02:21 PM 152 / 86 64 97 % 16 02:26 PM 148 / 74 58 97 % 13 02:31 PM 135 / 80 80 97 % 14 02:36 PM 138 / 78 59 99 % 12 02:41 PM 117 / 79 73 99 % 11 02:45 PM 95 / 56 78 100 % 28 02:47 PM 103 / 54 73 98 % 15 02:51 PM 114 / 63 68 97 % 14 03:04 PM 129 / 66 70 93 % 16 5 = Fully awake and oriented or at pre-proc level 03:18 PM 112 / 73 68 98 % 16 5 = Fully awake and oriented or at pre-proc level 03:33 PM 127 / 83 64 98 % 16 5 = Fully awake and oriented or at pre-proc level 03:45 PM 140 / 84 70 96 % 16 5 = Fully awake and oriented or at pre-proc level 04:00 PM 121 / 89 70 96 % 16 5 = Fully awake and oriented or at pre-proc level 04:15 PM 95 / 34 71 92 % 16 5 = Fully awake and oriented or at pre-proc level 04:20 PM 103 / 57 56 96 % 16 5 = Fully awake and oriented or at pre-proc level 04:39 PM 144 / 88 68 96 % 18 5 = Fully awake and oriented or at pre-proc level 04:46 PM 118 / 70 72 96 % 16 5 = Fully awake and oriented or at pre-proc level 05:00 PM 117 / 76 78 96 % 16 5 = Fully awake and oriented or at pre-proc level 05:15 PM 120 / 73 78 96 % 16 5 = Fully awake and oriented or at pre-proc level 05:28 PM 120 / 78 76 96 % 16 5 = Fully awake and oriented or at pre-proc level 05:45 PM 130 / 77 72 96 % 16 5 = Fully awake and oriented or at pre-proc level 06:00 PM 133 / 72 74 96 % 16 5 = Fully awake and oriented or at pre-proc level Procedural Medications Time Medication Dose Units Method Given By 01:58 PM Oxygen 2 L/min nasal cannula Jeffrey Wood RN 02:03 PM Versed 2 mg Intravenous Jeffrey Wood RN 02:03 PM Fentanyl 50 mcg Intravenous Jeffrey Wood RN 02:09 PM Oxygen 4 L/min nasal cannula Jeffrey Wood RN 02:17 PM Lidocaine 2% 19 ml Subcutaneous Baldemar Katz MD, FACC 02:34 PM Heparin 4000 units Intravenous Jeffrey Wood RN 02:46 PM Plavix 300 mg Orally Jeffrey Wood RN ASA Classification: CLASS II- Mild systemic disease (i.e. well-controlled diabetes, hypertension, asthma, cigarette smoking) Ena Score Preprocedure Postprocedure Activity 2- Moves 4 extremities sustained head lift Activity 2- Moves 4 extremities sustained head lift Circulation 2- SBP +/= 20 points of pre-anesthetic level Circulation 2- SBP +/= 20 points of pre-anesthetic level Consciousness 2- Awake and alert oriented x 3 Consciousness 2- Awake and alert oriented x 3 O2 Saturation 2- Able to maintain O2 satruation of 92% on room air O2 Saturation 2- Able to maintain O2 satruation of 92% on room air Respiratory 2- Able to deep breathe and cough well Respiratory 2- Able to deep breathe and cough well Total Score 10 Total Score 10 Contrast Agent: Isovue Diagnostic Contrast: 105 ml Total Contrast: 105 ml Fluoro Dose: 33 mGy Activated Clotting Time Time Seconds to Clot 03:50 PM 214 04:44 PM 173 Procedure Log Time Note Enter By 01:57 PM 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 Informed consent was obtained. tsites 01:59 PM Time: 13:58 Oxygen on at 2 L/min per nasal cannula by Jeffrey Wood RN tsites :59 PM Time: 13:59 Patient comfortable and pain free: Yes tsites :59 PM Time: 13:59LOC: 5 = Fully awake and oriented or at pre-proc level tsites 02:00 PM Hair removed from procedure site in holding area using clippers. Bilateral groin prepped with Chloraprep by Yesica Rodríguez (R), then patient was draped. Skin intact. tsites 02:00 PM Procedure start 14:00 tsites 02:00 PM Clinical Presentation: Non-STEMI tsites 02:00 PM Vitals capture started with the following parameters, Patient=Adult, Interval=5 min, Initial Yonflghs=886 mmHg, Deflation Rate=3 mmHg, Cuff placed on Right Arm 02:00 PM CathStat 02:00 PM Recorded ECG: HR=57 Condition=Condition 1 02:02 PM HR=72 bpm, ESKX=832/80 mmhg, SpO2=97.0 %, Resp=15 B/min 02:03 PM Time: 14:03 Versed 2 mg Intravenous Given by Jeffrey Wood RN tsites 02:03 PM Time: 14:03 Fentanyl 50 mcg Intravenous Given by Jeffrey Wood RN tsites 02:06 PM HR=72 bpm, HNQP=908/81 mmhg, SpO2=98.0 %, Resp=14 B/min, Comment=sr 02:09 PM Pressure channel 1 zeroed. 02:09 PM Time: 14:09 Oxygen on at 4 L/min per nasal cannula by Jeffrey Wood RN tsites 02:11 PM HR=77 bpm, YBUJ=674/73 mmhg, SpO2=97.0 %, Resp=26 B/min 02:14 PM Time: 13:59LOC: 5 = Fully awake and oriented or at pre-proc level tsites 02:17 PM Time out was performed according to hospital policy. Conscious sedation and anesthesia was achieved (see medication log with in this report above) tsites 02:17 PM Time: 14:17 19 ml Lidocaine 2% to right groin Subcutaneous Given by Baldemar Katz MD, [facility] tsites 02:17 PM HR=56 bpm, WXWO=534/81 mmhg, SpO2=97.0 %, Resp=17 B/min 02:18 PM Micro-Introducer Kit utilized for sheath placement tsites 02:19 PM Access obtained by percutaneous puncture. 5Fr 10cm micro Introducer sheath placed in right Femoral artery. [id number] tsites 02:19 PM Sheath exchanged for a 6 Fr 11 cm Terumo [place] sheath [id number] tsites 02:19 PM 5Fr FL 4 catheter inserted over the wire DNC tsites 02:19 PM 0.035 145cm Navilyst 3mmJ wire [id number] tsites 02:20 PM Recorded Pressure: Ao, HR=55, Condition=Condition 1 (Aorta) Ao 123/60/87 02:20 PM LCA angiography performed in multiple views. tsites 02:21 PM HR=64 bpm, YXVW=297/86 mmhg, SpO2=97 %, Resp=16 B/min 02:22 PM 5Fr FR 4 catheter inserted over the wire [facility] tsites 02:23 PM RCA angiography performed in multiple views. tsites 02:24 PM SVG to the 1st Diagonal angio performed in multiple views. tsites 02:26 PM 0.035 260cm Navilyst 3mmJ wire [id number] tsites 02:26 PM HR=58 bpm, UCLF=295/74 mmhg, SpO2=97 %, Resp=13 B/min 02:27 PM 5Fr IM catheter inserted over the wire [id number] tsites 02:28 PM Left ANTOINETTE to the LAD angio performed in multiple views. tsites 02:28 PM Recorded Pressure: Ao, HR=79, Condition=Condition 1 (Aorta) Ao 113/57/78 02:29 PM Time: 14:14LOC: 5 = Fully awake and oriented or at pre-proc level tsites 02:30 PM 5Fr Pigtail catheter inserted over the wire DN tsites 02:31 PM HR=80 bpm, KRDB=252/80 mmhg, SpO2=97.0 %, Resp=14 B/min 02:32 PM Recorded Pressure: LV, HR=56, Condition=Condition 1 (Left Ventricle) LV 119/-11/6 02:32 PM Recorded Pressure: LV, Ao, HR=80, Condition=Condition 1 (Left Ventricle) LV 132/10/7, (Aorta) Ao 144/44/92 02:34 PM Catheter crossed the aortic valve and was selectively placed in the left ventricle. Pressures recorded on pullback for left heart catheterization. tsites 02:34 PM Bolus angiogram of left Ventricle complete: 10 ml/sec for a total of 30 mls tsites 02:34 PM PCI Status Urgent tsites 02:34 PM Sheath exchanged for a 6 Fr 11 cm Cordis Lissa sheath [id number] tsites 02:34 PM Time: 14:34 Heparin 4000 units Intravenous Given by Jeffrey Wood RN tsites 02:35 PM 6Fr CLS 3.5 Runway guide catheter was used to cannulate the PCI vessel successfully. reused? No tsites 02:35 PM Inflation device was opened. tsites 02:35 PM .014 PT Graphix 182cm guide wire across target lesion- successful. reused? No tsites 02:36 PM 2.0 mm x 15 mm Emerge Monorail balloon across target lesion- successful. reused? No tsites 02:36 PM HR=59 bpm, WLBP=155/78 mmhg, SpO2=99.0 %, Resp=12 B/min 02:37 PM Lesion found in Mid Circumflex. Pre Stenosis: 95 Pre VIJAYA Flow: tsites 02:37 PM Lesion found in Distal Circumflex. Pre Stenosis: 50 Pre VIJAYA Flow: tsites 02:37 PM Lesion found in Proximal LAD. Pre Stenosis: 100 Pre VIJAYA Flow: tsites 02:37 PM Recorded Pressure: Ao, HR=60, Condition=Condition 1 (Aorta) Ao 112/54/79 02:37 PM Balloon inflated @ 10 sherry for 19 seconds tsites 02:39 PM Coronary Dominance: Left tsites 02:39 PM Balloon catheter removed intact. tsites 02:40 PM 2.5mm x 20mm Synergy drug-eluting stent across target lesion- successful Lot #[id number] tsites 02:41 PM Stent deployed @ 15 sherry for 17 seconds tsites 02:41 PM HR=73 bpm, TMZD=489/79 mmhg, SpO2=99 %, Resp=11 B/min 02:42 PM Lesion found in Left PDA. Pre Stenosis: 100 Pre VIJAYA Flow: tsites 02:44 PM Stent delivery system removed intact. tsites 02:44 PM 3.0 mm x 8mm NC Trek Rx balloon across target lesion- successful. reused? No tsites 02:44 PM Balloon inflated @ 12 sherry for 18 seconds tsites 02:44 PM NIBP STAT measurement started. 02:44 PM Balloon inflated @ 16 sherry for 14 seconds tsites 02:45 PM Recorded Pressure: Ao, HR=72, Condition=Condition 1 (Aorta) Ao 70/38/54 02:45 PM Guide wire removed intact. tsites 02:45 PM Balloon catheter removed intact. tsites 02:45 PM HR=78 bpm, NIBP=95/56 mmhg, EkP3=163 %, Resp=28 B/min 02:45 PM Guide catheter removed intact. tsites 02:46 PM Time: 14:46 Plavix 300 mg Orally Given by Jeffrey Wood RN tsites 02:47 PM Bolus angiogram of right Femoral complete: 4 ml/sec for a total of 7 mls tsites 02:47 PM HR=73 bpm, ZVGI=806/54 mmhg, SpO2=98 %, Resp=15 B/min 02:49 PM Procedure completed at 14:49 10/07/2018 tsites 02:49 PM Did you address VIJAYA flow and Dominance? YesCoronary Dominance: Left tsites 02:50 PM Sign out completed: Radiation Dose 272 mGy, 33 Gy/cm2 Fluoro Time: 5.6 Isovue 370 - 200ml contrast 105 ml given by Baldemar Katz MD, [facility]. Complications: None. 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 Sedation minutes 47. Cardiac Rehab Consult needed: Yes. Confirmed administered medications: Yes tsites 02:50 PM Isovue 370 - 200ml,1 Bottle(s) used. tsites 02:50 PM Sheath left in place to be pulled on floor/holding areaV+Pad tsites 02:50 PM Estimated Blood Loss: less than 20cc tsites 02:50 PM Post ECG NSR tsites 02:50 PM Post Blood Pressure 103/54 tsites 02:50 PM 14:50 Post Pulses Bilateral DP & PT 1+ tsites 02:51 PM Information taught Cardiac Cath, PCI, and V+ Pad tsites 02:51 PM Education needs Procedure, Plan of Care, and Responsibilities of Patient in Care tsites 02:51 PM Learning barriers :None tsites 02:51 PM Education Methods Verbal tsites 02:51 PM Education evaluation Able to repeat information tsites 02:51 PM Site status No bleeding/ No Hematoma - Rt Groin as reported by Yesica Rodríguez RT (R) at 14:51 tsites 02:51 PM Opsite applied tsites 02:51 PM Plavix, Effient or Brilinta given Yes tsites 02:51 PM Delay to floor Receiving unit staff issue tsites 02:51 PM Patient out of room: 14:51 tsites 02:51 PM HR=68 bpm, LCGK=358/63 mmhg, SpO2=97 %, Resp=14 B/min 02:55 PM Report given to dontae GARVIN Pt taken to Holding room Room #2. 14:54 tsites 02:55 PM Family placed in consult room. tsites 02:57 PM Lesion found in Mid RCA. Pre Stenosis: 90 Pre VIJAYA Flow: tsites 02:57 PM Lesion found in 1st Marginal. Pre Stenosis: 100 Pre VIJAYA Flow: tsites 02:59 PM Proximal Left Anterior Descending Coronary Artery with 100% stenosis. If graft is supplying this territory, 0 % stenosis. tsites 02:59 PM Circumflex, Obtuse Marginal, Left Posterior Descending, and Left Posterolateral Coronary Arteries with 100 % stenosis. If graft is supplying this area, 0 % stenosis tsites 02:59 PM Right Coronary, Right Posterior Descending Arteries with Right Posterolateral and Acute Marginal branches with 90 % stenosis. If graft is supplying this area, 0 % stenosis tsites 03:04 PM pt checked into HR 2 [email or web address] 03:34 PM family at bedside [email or web address] 04:35 PM pt c/o sudden onset of "not feeling right" pt became pale, diaphoretic and had EKG changes [email or web address] 04:35 PM pt placed in trendelenburg and IVF open, placed on 2L oxygen NC. Pt reports he feels like his sugar may be low. Accucheck performed and was 86 [email or web address] 04:36 PM EKG performed and sent to Dr. Katz [email or web address] 04:36 PM pt reports now that he is feeling better. Episode in its entirety lasted approx 5 minutes. EKG back to baseline, pt awake alert and oriented. Color has returned to normal [email or web address] 04:[address] Katz pt should go to 2N or 2NKady Coulter RN called bed management to make them aware of the change [email or web address] 04:44 PM At 16:44 the ACT was 173 seconds. [email or web address] 04:47 PM pt reports he is still feeling better [email or web address] 04:[address] Katz aware of ACT 173, orders ok to pull sheath mprater 05:00 PM Arterial sheath pulled using manual compression and V+ Pad for 15 minutes by Low Hwang RN mprater 05:10 PM Report called to Dontae Garvin mprater 05:20 PM Hemostasis achieved mprater 06:03 PM Patient transfered to 2NE26 mprater Complications Complication None Hemodynamics Pressures Site Systolic/A Wave Diastolic/V Wave Mean AO 123 60 87 AO 113 57 78 LV 132 10 7 AO 144 44 92 LV 119 -11 6 AO 112 54 79 AO 70 38 54 Post Procedure Information Blood Pressure: 103/54 mmHg Rhythm: NSR Post procedural instructions were given Closure Device Time Device Success/Fail 10/07/2018 2:56:00 PM V+Pad Site Checks Time Location Status Staff Sheath In? Note 02:51 PM Rt Groin No bleeding/ No Hematoma Yesica Rodríguez RT (R) Yes 03:04 PM Rt Groin No bleeding/ No Hematoma Mihaela Mckenzie RN Yes 03:18 PM Rt Groin No bleeding/ No Hematoma Mihaela Mckenzie RN Yes 03:34 PM Rt Groin No bleeding/ No Hematoma Mihaela Mckenzie RN Yes 03:45 PM Rt Groin No bleeding/ No Hematoma Isaura Pinto RN Yes 04:00 PM Rt Groin No bleeding/ No Hematoma Isaura Pinto RN Yes 04:15 PM Rt Groin No bleeding/ No Hematoma Mihaela Mckenzie RN Yes 04:30 PM Rt Groin No bleeding/ No Hematoma Mihaela Mckenzie RN Yes 04:45 PM Rt Groin No bleeding/ No Hematoma Low Hwang RN Yes 05:00 PM Rt Groin No bleeding/ No Hematoma Low Hwang RN sheath pulled 05:15 PM Rt Groin No bleeding/ No Hematoma Low Hwang RN 05:28 PM Rt Groin No bleeding/ No Hematoma Low Hwang RN 05:45 PM Rt Groin No bleeding/ No Hematoma Isaura Pinto RN 06:00 PM Rt Groin No bleeding/ No Hematoma Isaura Pinto RN Pulses Time Site Pre-Procedure Post-Procedure Note Bilateral DP & PT 1+ 2:50:00 PM Bilateral DP & PT 1+ 10/07/2018 5:00:00 PM Bilateral DP & PT 1+ 10/07/2018 5:45:00 PM Bilateral DP & PT 1+ Updated by Isaura Pinto RN on 10/07/2018 6:04:23 PM Isaura Pinto RN electronically signed on 10/07/2018 6:04:57 PM with status of Final
[2018-10-07] MEDS ORDERED: Dextrose Gel 15 GM/37.5 ML TUBE PO PRN ×2 (20:41)
[2018-10-07] MEDS ORDERED: D5% in Water 1,000 ML IVC PRN (20:41)
[2018-10-07] MEDS ORDERED: *HR* Dextrose 50 % in Water (Syg) 50 ML SYRINGE IVP PRN (20:41)
[2018-10-07] MEDS: Insulin DETEMIR 100 UNIT/ML X5UNITS SQ SCH (22:32)
[2018-10-08] MEDS: Metoprolol XL (24 HR) Succ 25 MG TAB.ER.24H PO SCH (08:34)
[2018-10-08] MEDS: Multivit/Ca/Min/Fe/FA 1 TAB TABLET PO SCH (08:35)
[2018-10-08] MEDS: Isosorbide MONOnitrate (24 HR) 30 MG TAB.ER.24H PO SCH (08:35)
[2018-10-08] MEDS: Gabapentin 300 MG CAPSULE PO SCH ×2 (08:35→21:54)
[2018-10-08] MEDS: Aspirin Enteric Coated 81 MG Tablet PO SCH (08:35)
[2018-10-08] MEDS: Insulin LISPRO 300 UNITS/3 ML VIAL SQ SCH ×4 (08:35→21:53)
[2018-10-08] MEDS: *HR* OxyCODONE/APAP 5/325 TABLET PO SCH ×2 (08:35→21:54)
--- NOTE | 2018-10-08 09:17 | Discharge Summary ---
Date of Encounter: 10/08/18 Time of Encounter: 09:14 - Discharge Diagnosis (1) NSTEMI (non-ST elevated myocardial infarction) Priority: Primary Status: Acute (2) CAD (coronary artery disease) of bypass graft Priority: Secondary Status: Acute Qualifiers: [place] vs. 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 Beltre is a 78 year old male with history of CAD status post CABG in 2010 and PCI with 2 stents in 2018 presented with chest tightness and was taken for left heart cath s/p JA to mid circumflex artery. Chest tightness resolved and patient was discharged on current therapies with the additional of Plavix. Will follow with cardiology closely. Diastolic dysfunction on echocardiogram but clinical evidence of heart failure. Patient was asked to weigh himself daily and call cardiology office if he starts gaining weight. Discharge discussed with: patient - Time Spent with Patient Total time spent providing and/or coordinating discharge services: 50 minutes Time spent: Greater than 30 minutes - Discharge Medications Prescriptions: New Clopidogrel [Plavix] 75 mg PO DAILY #30 tablet Continued Acetaminophen [Acetaminophen ER] 650 mg PO TID PRN PRN Reason: Pain Nitroglycerin [Nitrostat] 0.4 mg SL PRN PRN PRN Reason: Angina Multivitamin with Iron [Multivitamins with Iron] 1 each PO DAILY Aspirin [Lo-Dose Aspirin EC] 81 mg PO DAILY Insulin LISPRO [Humalog Kwikpen U-100] 26 - 30 unit SQ TID Insulin Glargine,Hum.rec.anlog [Lantus Solostar] 30 - 40 unit SQ HS Oxycodone HCl/Acetaminophen [Percocet 5-325 mg Tablet] 2 each PO BID Gabapentin [Neurontin] 600 mg PO DAILY Metoprolol XL (24 HR) Succ [Toprol Xl] 25 mg PO DAILY Pantoprazole Sodium [Protonix] 40 mg PO DAILY Isosorbide MONOnitrate [Isosorbide Mononitrate ER] 60 mg PO DAILY Duloxetine HCl [Cymbalta] 60 mg PO DAILY Finasteride [Proscar] 5 mg PO DAILY Home Medications: Acetaminophen [Acetaminophen ER] 650 mg PO TID PRN 05/30/17 [History] Aspirin [Lo-Dose Aspirin EC] 81 mg PO DAILY 05/30/17 [History] Insulin Glargine,Hum.rec.anlog [Lantus Solostar] 30 - 40 unit SQ HS 05/30/17 [History] Insulin LISPRO [Humalog Kwikpen U-100] 26 - 30 unit SQ TID 05/30/17 [History] Multivitamin with Iron [Multivitamins with Iron] 1 each PO DAILY 05/30/17 [History] Nitroglycerin [Nitrostat] 0.4 mg SL PRN PRN 05/30/17 [History] Oxycodone HCl/Acetaminophen [Percocet 5-325 mg Tablet] 2 each PO BID 05/30/17 [History] Gabapentin [Neurontin] 600 mg PO DAILY 07/03/17 [History] Metoprolol XL (24 HR) Succ [Toprol Xl] 25 mg PO DAILY 07/03/17 [History] Pantoprazole Sodium [Protonix] 40 mg PO DAILY 07/03/17 [History] Isosorbide MONOnitrate [Isosorbide Mononitrate ER] 60 mg PO DAILY 10/05/18 [History] Duloxetine HCl [Cymbalta] 60 mg PO DAILY 10/07/18 [History] Finasteride [Proscar] 5 mg PO DAILY 10/07/18 [History] Clopidogrel [Plavix] 75 mg PO DAILY #30 tablet 10/08/18 [Rx] Allergies/Adverse Reactions: Allergy/AdvReac Type Severity Reaction Status Date / Time ciprofloxacin [From Cipro] AdvReac Weakness Verified 10/07/18 11:54 rosuvastatin [From Crestor] AdvReac Muscle Pain Verified 10/07/18 11:54 Date of admission: 10/06/18 00:00 Primary care physician: Flako Solorzano Consults: 10/06/18 00:02 Consult to Cardiology [CONS] Routine Comment: Consulting Provider: Cardiology Saira Reason for Consult: Patient with known CAD presenting with NSTEMI Call Completed: Yes 10/08/18 08:27 Consult to Cardiac Rehabilitation-Phase1 [CONS] Routine Comment: Reason for Consult: NSTEMI Call Completed: No - Constitutional Vitals: Temp Pulse Resp BP Pulse Ox 97.8 F 62 16 121/62 95 10/08/18 07:16 10/08/18 07:16 10/08/18 05:23 10/08/18 07:16 10/08/18 07:16 Exam: General: Ill-appearing and in no acute distress HEENT: No erythema of posterior pharynx. No exudates. Lymphatics: No mandibular or cervical lymphadenopathy Cardiovascular: RRR. No murmurs. No chest wall tenderness. Lungs: Clear to auscelltation bilaterally. Regular chest rise. Abdomen: Non-tender. No rebound or gaurding. Nl bowel sounds. Extremities: No edema. 2+ pulses radial and pedal pulses Skin: No rahses, abrasions, or contusions. Nl cap refill. Psych: Nl attention. A&Ox3 Neuro: disaster recovery consultant II-XII intact. 5/5 strength. Sensation to light touch and pinprick intact. - Patient Status Disposition: Home, Self-Care Condition: Good Functional capacity at discharge: independent ambulation Overall status at discharge: patient is back to baseline - Discharge Instructions Follow Up With: Flako Solorzano DO [Primary Care Provider] - - Diet and Activity Activity: increase activity as tolerated Diet: low salt diet
[2018-10-08 11:50] LABS: Basophils % 0.3 %; Eosinophils # 0.2 K/mcL (0.0-0.6); Eosinophils % 2.8 %; Hematocrit 40.1 % (37.5-50.1); Hemoglobin 13.1 g/dL (12.9-16.9); Immature Granulocytes % 0.2 % (0-4); Lymphocytes # 2.2 K/mcL (0.6-4.6); Lymphocytes % 35.2 %; Mean Corpuscular HGB Conc 32.7 g/dL (31.6-35.5); Mean Corpuscular Hemoglobin 30.3 pg (28.0-33.3); Mean Corpuscular Volume 92.8 fL (83.0-100.0); Mean Platelet Volume 9.3 fL (9.4-12.4); Monocytes # 0.8 K/mcL (0.0-1.3); Monocytes % 12.4 %; Neutrophils # 3.1 K/mcL (1.6-8.9); Platelet Count 252 K/mcL (140-400); Red Blood Count 4.32 M/mcL (4.19-5.50); Red Cell Distribution Width 12.9 % (11.5-14.5); Segmented Neutrophils % 49.1 %; White Blood Count 6.4 K/mcL (4.3-11.1)
[2018-10-08 12:07] LABS: BUN/Creatinine Ratio 19 (6-26); Blood Urea Nitrogen 20 mg/dL (8-23); Calcium 9.4 mg/dL (8.6-10.3); Carbon Dioxide 27 mEq/L (23-29); Chloride 104 mEq/L (98-107); Glucose 165 mg/dL (70-105); Osmolality,Calculated 290 (280-300); Potassium 4.3 mEq/L (3.5-5.1); Sodium 137 mEq/L (136-145); eGFR For African Americans > 60 (> 60); eGFR For Non-African Americans > 60 (> 60)
--- NOTE | 2018-10-08 14:23 | Cardiology Progress Note ---
Date of Encounter: 10/08/18 Time of Encounter: 14:20 Assessment and Plan (1) NSTEMI (non-ST elevated myocardial infarction) Current Visit: Yes Status: Acute History of CAD, prior CABG. LHC performed in 2018, medical therapy recommended at that time. Recent stress test performed, which demonstrated a prior infarct, residual ischemia in an area of known severe CAD. Describes increasing shortness of breath, chest discomfort over the past few days. ECG demonstrates lateral ST and T-wave changes suggestive of ischemia, new compared to ECGs from 2018. Overall, patient reports he feels better. LHC completed yesterday and showed 2/2 patent bypass with patent HADDAD-LAD. SVG to 1st diag with 50% stenosis. PCI with JA to LCX arrtery completed with megan quinteros. There is a 90% stenosis and small vessel CAD noted. Left to right collaterals seen. Pt denies recurrent chest pain. C/o vasovagal event after procedure related to chronic extremity pain with sciatica. No recurrent events. EKG completed and St changes are unchanged from prior EKG. Repeat EKG today shows ST changes are more prominent but unchaned in pattern. Reviewed with Dr. Raymundo. Telemetry review shows intermittent mobitz type I AV block between 6:00 amd an 7:00 am this morning. Pt denies symptoms. Toprol XL discontinued this morning. Recommend monitoring for 24 hours and to apply holter monitor at discharge. Pt also pending pancreatic mass biopsy. Importance of DAPT with asa and plavix uninterrupted reviewed. WIll discuss holding DAPT in 3 months for procedure with his cardiology provider or if needed for urgent biopsy. Continue statin and bb. F/u scheduled. (2) CAD (coronary artery disease) of bypass graft Current Visit: Yes Status: Acute S/p CABG and PCI. See plan above. Qualifiers: [place] vs. transplanted heart: [place] heart Associated angina: with stable angina Qualified Code(s): I25.708 - Atherosclerosis of coronary artery bypass graft(s), unspecified, with other forms of angina pectoris Discussion w patient/family: The assessment and plan as outlined above was discussed with the patient and/or family members who expressed understanding and agreement. All questions were ans wered. Thank you for involving us in the care of your patient. Please call with any questions. Subjective Principal diagnosis: NSTEMI Interval history: Mr. Beltre is without new complaints. 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 Patient states that he had severe extremity pain and then developed hypotension and low heart rates. EKG taken and no acute change from prior EKG. Hospitalist at bedside and noted history of sciatica. Patient states that extremity pain is chronic. Vasovagal event suspected. Objective Vital Signs Temp Pulse Resp BP Pulse Ox 10/08/18 07:16 97.8 F 62 121/62 95 10/08/18 05:23 97.6 F 59 16 122/68 98 10/08/18 00:32 98.4 F 80 17 123/80 96 10/07/18 22:25 97.6 F 87 16 112/81 93 10/07/18 20:50 98.1 F 90 16 117/77 93 10/07/18 19:50 92 16 115/59 95 10/07/18 19:15 88 16 121/82 94 10/07/18 18:46 89 132/71 95 10/07/18 18:30 92 120/109 10/07/18 18:18 85 135/68 94 Intake and Output 10/07/18 10/08/18 10/08/18 23:59 07:59 15:59 Intake Total 240 / 240 Output Total 250 / 1175 550 / 550 Balance -250 / -1075.8 -550 / -310 240 / -310 Intake: Oral 240 / 240 Output: Urine 250 / 1175 550 / 550 Other: Meal Lunch Percent of Meal Consumed 90% Weight 91.9 kg Blood Glucose* 239 181 Patient Weight 10/08/18 23:59 Weight 91.9 kg General: Conversant, No Apparent Distress HEENT: Atraumatic, Normocephaly, Mucus Membranes Moist Neck: No JVD, Normal carotid pulses Cardiac: Reg Rate and Rhythm, Normal S1 and S2, No Murmur Lungs: Normal Breath Sounds, No Wheeze, Rales, Rhonchi Neuro: Alert and responsive, No focal deficits noted Abdomen: Soft, Non-Tender Skin: No rashes noted on visualized skin Musculoskeletal: No Chest Wall Tenderness Extremities: No Clubbing, No Cyanosis, No Edema, Normal Pulses Results 10/08/18 11:33 10/08/18 11:33 Lab Results 10/08/18 10/08/18 11:33 11:33 WBC 6.4 Hgb 13.1 Hct 40.1 Plt Count 252 Sodium 137 Potassium 4.3 Chloride 104 Carbon Dioxide 27 BUN 20 Creatinine 1.07 Glucose 165 H Calcium 9.4 - Imaging and Cardiology Echo: report reviewed - EKG Interpretation EKG results cardiology: personally reviewed Consult Discharge Plan - Plan Referrals: Flako Solorzano DO [Primary Care Provider] - 10/16/18 10:00 am Prescriptions: Clopidogrel [Plavix] 75 mg PO DAILY #30 tablet
[2018-10-08] MEDS: Insulin DETEMIR 100 UNIT/ML X5UNITS SQ SCH (21:53)
[2018-10-09] MEDS ORDERED: *HR* Heparin 5,000 UNIT/ML VIAL SQ SCH (06:00)
--- NOTE | 2018-10-09 06:20 | Electrocardiograph Report ---
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
[2018-10-09 07:03] LABS: BUN/Creatinine Ratio 22 (6-26); Blood Urea Nitrogen 21 mg/dL (8-23); Calcium 9.4 mg/dL (8.6-10.3); Carbon Dioxide 24 mEq/L (23-29); Chloride 99 mEq/L (98-107); Glucose 164 mg/dL (70-105); Magnesium 2.1 mg/dL (1.6-2.6); Osmolality,Calculated 289 (280-300); Potassium 4.1 mEq/L (3.5-5.1); Sodium 136 mEq/L (136-145); eGFR For African Americans > 60 (> 60); eGFR For Non-African Americans > 60 (> 60)
[2018-10-09] MEDS: Gabapentin 300 MG CAPSULE PO SCH (08:12)
[2018-10-09] MEDS: *HR* OxyCODONE/APAP 5/325 TABLET PO SCH (08:13)
[2018-10-09] MEDS: Isosorbide MONOnitrate (24 HR) 30 MG TAB.ER.24H PO SCH (08:13)
[2018-10-09] MEDS: Insulin LISPRO 300 UNITS/3 ML VIAL SQ SCH ×2 (08:13→12:09)
[2018-10-09] MEDS: Aspirin Enteric Coated 81 MG Tablet PO SCH (08:13)
[2018-10-09] MEDS: Multivit/Ca/Min/Fe/FA 1 TAB TABLET PO SCH (08:13)
--- NOTE | 2018-10-09 10:20 | Cardiology Progress Note ---
Date of Encounter: 10/09/18 Time of Encounter: 08:45 Assessment and Plan (1) NSTEMI (non-ST elevated myocardial infarction) Current Visit: Yes Status: Acute History of CAD, prior CABG in 2009. LHC performed in 2018, medical therapy recommended at that time. Recent stress test performed, which demonstrated a prior infarct, residual ischemia in an area of known severe CAD. Patient presented with increasing shortness of breath, chest discomfort over the past few days. ECG demonstrates lateral ST and T-wave changes suggestive of ischemia, new compared to ECGs from 2018. LHC completed 10/07/18 and showed 2/2 patent bypass with patent HADDAD-LAD. SVG to 1st diag with 50% stenosis. PCI with JA to LCX arrtery completed with goods results. There is a 90% stenosis RCA and small vessel CAD noted. Left to right collaterals seen. Pt denies recurrent chest pain. C/o vasovagal event after procedure related to chronic extremity pain with sciatica. No recurrent events. EKG completed today and St changes are unchanged from prior EKG. Reviewed with Dr. Raymundo. Pt also pending pancreatic mass biopsy. Importance of DAPT with asa and plavix uninterrupted reviewed. WIll discuss holding DAPT in 3 months for procedure with his cardiology provider or if needed for urgent biopsy. Toprol xl held for nocturnal 2:1 AV block and mobitz type I. No statin due to severe myalgia with statin. F/u scheduled. Cardiology will sign off. Call with questions. (2) CAD (coronary artery disease) of bypass graft Current Visit: Yes Status: Acute S/p CABG and multiple PCI. See plan above. Qualifiers: [place] vs. transplanted heart: [place] heart Associated angina: with stable angina Qualified Code(s): I25.708 - Atherosclerosis of coronary artery bypass graft(s), unspecified, with other forms of angina pectoris (3) AV block Current Visit: Yes Status: Acute Patient noted to have 1st degree AV block, RBBB. Nocturnal 2:1 AV block and mobitz type I seen. HR as low as 30 bpm at night. No daytime block or bradycardia seen. Toprol xl helds. Patient is asymptomatic. Reviewed with Dr. Raymundo, 2 week holter monitor and ou-pt f/u with EP recommended. Discussion w patient/family: The assessment and plan as outlined above was discussed with the patient and/or family members who expressed understanding and agreement. All questions were answered. Thank you for involving us in the care of your patient. Please call with any questions. Subjective Principal diagnosis: NSTEMI Interval history: Mr. Belter is without new complaints. Denies chest pain or SOB. Denies dizziness, or lightheadedness. Denies othopnea, PND, or edema. Objective Vital Signs, Last 4 Hours Temp Pulse Resp BP Pulse Ox 10/09/18 06:53 97.9 F 63 15 141/76 94 General: Conversant, No Apparent Distress HEENT: Atraumatic, Normocephaly, Mucus Membranes Moist Neck: No JVD, Normal carotid pulses Cardiac: Reg Rate and Rhythm, Normal S1 and S2, No Murmur Lungs: Normal Breath Sounds, No Wheeze, Rales, Rhonchi Neuro: Alert and responsive, No focal deficits noted Abdomen: Soft, Non-Tender Skin: No rashes noted on visualized skin Musculoskeletal: No Chest Wall Tenderness Extremities: No Clubbing, No Cyanosis, No Edema, Normal Pulses, Other (No problem with right groin) Results 10/08/18 11:33 10/09/18 05:58 Lab Results 10/08/18 10/08/18 10/09/18 11:33 11:33 05:58 WBC 6.4 Hgb 13.1 Hct 40.1 Plt Count 252 Sodium 137 136 Potassium 4.3 4.1 Chloride 104 99 Carbon Dioxide 27 24 BUN 20 21 Creatinine 1.07 0.94 Glucose 165 H 164 H Calcium 9.4 9.4 Magnesium 2.1 - Imaging and Cardiology Echo: report reviewed - EKG Interpretation EKG results cardiology: personally reviewed Consult Discharge Plan - Plan Referrals: Flako Solorzano DO [Primary Care Provider] - 10/16/18 10:00 am Prescriptions: Clopidogrel [Plavix] 75 mg PO DAILY #30 tablet
--- NOTE | 2018-10-09 11:03 | Internal Med Progress Note ---
Hospitalist Progress Note - Encounter Date of Encounter: 10/09/18 Time of Encounter: 08:00 - Subjective Interval History: patient was seen and examined at bedside. family at bedside. all questions answered. eager for discharge. no overnight events. cardiology team at bedside and all questions answered by myself andby cardiology team. they recommended to hold off of metoprolol for now and to continue with DAPT, follow up as OP with cardiology team and have holter monitor reviewed. no complaints. discussed with family in regards to him having sleep study performed as OP - Exam Vitals: Temp Pulse Resp BP Pulse Ox 97.9 F 63 15 141/76 94 10/09/18 06:53 10/09/18 06:53 10/09/18 06:53 10/09/18 06:53 10/09/18 06:53 Exam: General: no acute distress Cardiovascular: RRR. No murmurs. No chest wall tenderness. Lungs: Clear to auscelltation bilaterally. Regular chest rise. Abdomen: Non-tender. No rebound or gaurding. Nl bowel sounds. Extremities: No edema. 2+ pulses radial and pedal pulses Skin: No rahses Psych: Nl attention. A&Ox3 Neuro: no focal deficit - Assessment and Plan (1) NSTEMI (non-ST elevated myocardial infarction) Current Visit: Yes Status: Acute (2) CAD (coronary artery disease) of bypass graft Current Visit: Yes Status: Acute (3) Diabetes Current Visit: Yes Status: Acute - Summary of Assessment and Plan Summary of Assessment and Plan: patient was seen at bedside. my first encounter with the patient was on 10/09. i was given check out by my colleague for him to be discharged if no further recommendation from cardiology team. he was discharged on 10/08 by my colleague but was held overnight for tele monitoring. toprolol was held as he had pauses as per cardiology recommendation. as per cardiology "Patient noted to have 1st degree AV block, RBBB. Nocturnal 2:1 AV block and mobitz type I seen. HR as low as 30 bpm at night. No daytime block or bradycardia seen. Toprol xl helds. Patient is asymptomatic. Reviewed with Dr. Raymundo, 2 week holter monitor and ou-pt f/u with EP recommended." hlter monitor was ordered by cardiology. he understands and i discussed with family importance of DAPT. RX was provided by my colleague for plavix. he is to hold toprolol as per cardiology recs. follow up closely with cardiology as OP. i discussed ROLDAN and sleep study. nursing staff aware to provide patient with Appointment with pulmonology for sleep study. discussed need for statins and patient reports that he is allergic to statins and developed muscle aches and was unable to walk after he was started on rosuvastatin. cardiology team at bedside and they cleared patient for discharge off of BB. - Time Spent with Patient Total time spent is greater than 50% in coordination of care (as documented) at patient's floor/unit and/or counseling patient: less than 15 minutes Plan of Care Discussed with: patient Internal Medicine: Result - Labs CBC & Chem 7: 10/08/18 11:33 10/09/18 05:58 Labs: Short CBC 10/08/18 Range/Units 11:33 WBC 6.4 (4.3-11.1) K/mcL Hgb 13.1 (12.9-16.9) g/dL Hct 40.1 (37.5-50.1) % Plt Count 252 (140-400) K/mcL Neutrophils # 3.1 (1.6-8.9) K/mcL BMP 10/08/18 10/09/18 11:33 05:58 Sodium 137 136 Potassium 4.3 4.1 Chloride 104 99 Carbon Dioxide 27 24 BUN 20 21 Creatinine 1.07 0.94 Glucose 165 H 164 H Calcium 9.4 9.4 - ABG Interpretation ABG results: PT/INR, D-dimer PT 10.6 Seconds (9.4-12.1) 10/05/18 22:04 Consult Discharge Plan - Plan Referrals: Flako Solorzano DO [Primary Care Provider] - 10/16/18 10:00 am Prescriptions: Clopidogrel [Plavix] 75 mg PO DAILY #30 tablet (2) CAD (coronary artery disease) of bypass graft Qualifiers: [place] vs. 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
[2018-10-09 12:14] VITALS: BP 119/75
--- NOTE | 2018-10-09 13:38 | Electrocardiograph Report ---
[address] [address] Test Date: 2018-10-08 Pat Name: Mohamud Beltre Department: 111 Room: 2NE26 Gender: M Transplant Rn: : 1940 Requested By: Charlie Lemus Order Number: [id number] Reading MD: Baldemar Katz Measurements Intervals [place] Rate: 61 P: 52 NC: 303 QRS: -29 QRSD: 93 T: 212 QT: 417 QTc: 421 Interpretive Statements SINUS RHYTHM WITH FIRST DEGREE AV BLOCK BORDERLINE LEFT AXIS DEVIATION DIFFUSE ISCHEMIC CHANGES Electronically Signed On 10-09-2018 13:36:32 EDT by Baldmear Katz
--- NOTE | 2018-10-09 13:46 | Electrocardiograph Report ---
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
== END 2018-10-09 14:28 | disposition home or self-care (01) | DRG 247 ==
LOC: 3BNU 21:42 → EMEROOARM 21:42 → 3BNU 10-06 00:20 → 2NENU 10-07 17:42
PROVIDERS: ADMIT Internal Medicine; ATTEND Internal Medicine

== ENCOUNTER 2019-08-01 15:04 | Inpatient (IN) ==
[2019-08-01 15:44] LABS: Hematocrit 37.4 % (37.5-50.1); Hemoglobin 12.1 g/dL (12.9-16.9); Mean Corpuscular HGB Conc 32.4 g/dL (31.6-35.5); Mean Corpuscular Hemoglobin 28.9 pg (28.0-33.3); Mean Corpuscular Volume 89.3 fL (83.0-100.0); Platelet Count 245 K/mcL (140-400); Red Blood Count 4.19 M/mcL (4.19-5.50); Red Cell Distribution Width 14.6 % (11.5-14.5); White Blood Count 6.4 K/mcL (4.3-11.1)
[2019-08-01 16:03] LABS: BUN/Creatinine Ratio 22 (6-26); Blood Urea Nitrogen 19 mg/dL (8-23); Calcium 9.4 mg/dL (8.6-10.3); Carbon Dioxide 27 mEq/L (23-29); Chloride 101 mEq/L (98-107); Glucose 220 mg/dL (70-105); Osmolality,Calculated 287 (280-300); Potassium 4.1 mEq/L (3.5-5.1); Sodium 134 mEq/L (136-145); eGFR For African Americans > 60 (> 60); eGFR For Non-African Americans > 60 (> 60)
[2019-08-01 16:06] LABS: Troponin I 0.81 ng/mL (< 0.04)
[2019-08-01] MEDS ORDERED: Aspirin 81 MG TAB.CHEW PO STA (16:07)
[2019-08-01] MEDS ORDERED: Naloxone 0.4 MG/ML INJ IVP PRN (18:07)
[2019-08-01] MEDS ORDERED: Dextrose Gel 15 GM/37.5 ML TUBE PO PRN ×2 (18:10)
[2019-08-01] MEDS ORDERED: D5% in Water 1,000 ML IVC PRN (18:10)
[2019-08-01] MEDS ORDERED: *HR* Dextrose 50 % in Water (Syg) 50 ML SYRINGE IVP PRN (18:10)
[2019-08-01] MEDS: Apixaban 5 MG TABLET PO SCH (21:48)
[2019-08-01] MEDS: Insulin LISPRO 300 UNITS/3 ML VIAL SQ SCH (21:48)
[2019-08-01] MEDS: Insulin DETEMIR 100 UNIT/ML X5UNITS SQ SCH (22:05)
[2019-08-02 01:52] LABS: Hematocrit 36.2 % (37.5-50.1); Hemoglobin 11.6 g/dL (12.9-16.9); Mean Corpuscular Hemoglobin 28.6 pg (28.0-33.3); Mean Corpuscular Volume 89.4 fL (83.0-100.0); Mean Platelet Volume 9.4 fL (9.4-12.4); Platelet Count 249 K/mcL (140-400); Red Blood Count 4.05 M/mcL (4.19-5.50); Red Cell Distribution Width 14.5 % (11.5-14.5); White Blood Count 6.1 K/mcL (4.3-11.1)
[2019-08-02 02:10] LABS: BUN/Creatinine Ratio 22 (6-26); Blood Urea Nitrogen 17 mg/dL (8-23); Calcium 9.1 mg/dL (8.6-10.3); Carbon Dioxide 25 mEq/L (23-29); Chloride 102 mEq/L (98-107); Chol/HDL Ratio 2.3 (0-4.9); Cholesterol 81 mg/dL (< 200); Glucose 210 mg/dL (70-105); HDL Cholesterol 36 mg/dL (40-59); LDL Cholesterol,Calculated 11 mg/dL (0-99); Magnesium 2.1 mg/dL (1.6-2.6); Osmolality,Calculated 286 (280-300); Sodium 134 mEq/L (136-145); Triglycerides 169 mg/dL (< 150); eGFR For African Americans > 60 (> 60); eGFR For Non-African Americans > 60 (> 60)
[2019-08-02] MEDS: Isosorbide MONOnitrate (24 HR) 30 MG TAB.ER.24H PO SCH ×2 (09:03→12:15)
[2019-08-02] MEDS: Gabapentin 300 MG CAPSULE PO SCH ×2 (09:03→12:15)
[2019-08-02] MEDS: Finasteride 5 MG TABLET PO SCH ×2 (09:03→12:16)
[2019-08-02] MEDS: Aspirin Enteric Coated 81 MG Tablet PO SCH ×2 (09:03→12:15)
[2019-08-02] MEDS: Insulin LISPRO 300 UNITS/3 ML VIAL SQ SCH ×4 (09:07→21:29)
[2019-08-02] MEDS ORDERED: *HR* Heparin 5,000 UNIT/ML VIAL IVP PRN (10:58)
[2019-08-02] MEDS ORDERED: Heparin 25,000 UNIT/250 ML D5W 25,000 UNIT/250 ML IV.SOLN IVC SCH (11:00)
[2019-08-02 11:33] LABS: Heparin anti-factor XA UFH 0.74 IU/mL (0.30-0.70)
[2019-08-02 11:34] LABS: INR 1.1; Prothrombin Time 12.7 Seconds (9.4-12.1)
[2019-08-02] MEDS: Acetaminophen 325 MG TABLET PO PRN (12:15)
[2019-08-02] MEDS: carvediloL 6.25 MG TABLET PO SCH ×2 (12:15→16:55)
[2019-08-02] MEDS ORDERED: Perflutren Lipid Microsphere 1.3 ML in 0.9 % Sodium Chloride 8.7 ML IVP ONE (13:41)
[2019-08-02 20:33] LABS: Heparin anti-factor XA UFH 0.64 IU/mL (0.30-0.70)
[2019-08-02 20:36] LABS: Activated Partial Thrombo Time 53.6 Seconds (26.0-36.0)
[2019-08-02] MEDS: Ondansetron 4 MG/2 ML VIAL IVP PRN (21:28)
[2019-08-02] MEDS: Insulin DETEMIR 100 UNIT/ML X5UNITS SQ SCH (21:28)
[2019-08-02] MEDS: Heparin 25,000 UNIT/250 ML D5W 25,000 UNIT/250 ML IV.SOLN IVC SCH (21:51)
[2019-08-02] MEDS: *HR* HYDROcodone/Acet 5/325 mg TABLET PO PRN (23:54)
[2019-08-03] MEDS: *HR* OxyCODONE/APAP 5/325 TABLET PO PRN ×2 (01:47→23:56)
[2019-08-03 03:43] LABS: Basophils % 0.3 %; Eosinophils # 0.1 K/mcL (0.0-0.6); Eosinophils % 1.6 %; Hematocrit 41.9 % (37.5-50.1); Immature Granulocytes % 0.1 % (0-4); Lymphocytes # 2.4 K/mcL (0.6-4.6); Lymphocytes % 33.1 %; Mean Corpuscular HGB Conc 32.9 g/dL (31.6-35.5); Mean Corpuscular Hemoglobin 29.4 pg (28.0-33.3); Mean Corpuscular Volume 89.3 fL (83.0-100.0); Mean Platelet Volume 9.7 fL (9.4-12.4); Monocytes # 0.7 K/mcL (0.0-1.3); Monocytes % 8.8 %; Neutrophils # 4.1 K/mcL (1.6-8.9); Platelet Count 301 K/mcL (140-400); Red Blood Count 4.69 M/mcL (4.19-5.50); Red Cell Distribution Width 14.5 % (11.5-14.5); Segmented Neutrophils % 56.1 %; White Blood Count 7.4 K/mcL (4.3-11.1)
[2019-08-03 03:46] LABS: Hemoglobin 13.8 g/dL (12.9-16.9)
[2019-08-03 04:03] LABS: BUN/Creatinine Ratio 20 (6-26); Blood Urea Nitrogen 17 mg/dL (8-23); Calcium 10.1 mg/dL (8.6-10.3); Carbon Dioxide 25 mEq/L (23-29); Chloride 99 mEq/L (98-107); Glucose 174 mg/dL (70-105); Osmolality,Calculated 286 (280-300); Sodium 135 mEq/L (136-145); eGFR For African Americans > 60 (> 60); eGFR For Non-African Americans > 60 (> 60)
[2019-08-03] MEDS: Finasteride 5 MG TABLET PO SCH (07:51)
[2019-08-03] MEDS: Gabapentin 300 MG CAPSULE PO SCH (07:51)
[2019-08-03] MEDS: Insulin LISPRO 300 UNITS/3 ML VIAL SQ SCH ×4 (07:51→21:28)
[2019-08-03] MEDS: Aspirin Enteric Coated 81 MG Tablet PO SCH (07:51)
[2019-08-03] MEDS: Isosorbide MONOnitrate (24 HR) 30 MG TAB.ER.24H PO SCH (07:51)
[2019-08-03] MEDS: *HR* HYDROcodone/Acet 5/325 mg TABLET PO PRN (08:02)
[2019-08-03] MEDS: carvediloL 6.25 MG TABLET PO SCH ×2 (11:58→17:10)
[2019-08-03] MEDS: *HR* Heparin 5,000 UNIT/ML VIAL IVP PRN (19:35)
[2019-08-03] MEDS ORDERED: Menthol 9.1 MG LOZENGE PO PRN (20:44)
[2019-08-03] MEDS: Insulin DETEMIR 100 UNIT/ML X5UNITS SQ SCH (21:27)
[2019-08-04 02:03] LABS: BUN/Creatinine Ratio 26 (6-26); Blood Urea Nitrogen 25 mg/dL (8-23); Carbon Dioxide 26 mEq/L (23-29); Chloride 98 mEq/L (98-107); Glucose 242 mg/dL (70-105); Osmolality,Calculated 286 (280-300); Potassium 4.4 mEq/L (3.5-5.1); Sodium 132 mEq/L (136-145); eGFR For African Americans > 60 (> 60); eGFR For Non-African Americans > 60 (> 60)
[2019-08-04 02:19] LABS: Basophils % 0.3 %; Eosinophils # 0.2 K/mcL (0.0-0.6); Eosinophils % 2.5 %; Hematocrit 38.6 % (37.5-50.1); Hemoglobin 12.5 g/dL (12.9-16.9); Immature Granulocytes % 0.3 % (0-4); Lymphocytes # 2.5 K/mcL (0.6-4.6); Lymphocytes % 34.7 %; Mean Corpuscular HGB Conc 32.4 g/dL (31.6-35.5); Mean Corpuscular Hemoglobin 28.7 pg (28.0-33.3); Mean Corpuscular Volume 88.5 fL (83.0-100.0); Mean Platelet Volume 9.7 fL (9.4-12.4); Monocytes # 0.7 K/mcL (0.0-1.3); Monocytes % 9.7 %; Neutrophils # 3.8 K/mcL (1.6-8.9); Platelet Count 272 K/mcL (140-400); Red Blood Count 4.36 M/mcL (4.19-5.50); Red Cell Distribution Width 14.5 % (11.5-14.5); Segmented Neutrophils % 52.5 %; White Blood Count 7.2 K/mcL (4.3-11.1)
[2019-08-04] MEDS: Heparin 25,000 UNIT/250 ML D5W 25,000 UNIT/250 ML IV.SOLN IVC SCH (02:52)
[2019-08-04] MEDS: Ondansetron 4 MG/2 ML VIAL IVP PRN (05:11)
[2019-08-04] MEDS: Insulin LISPRO 300 UNITS/3 ML VIAL SQ SCH ×4 (08:22→20:56)
[2019-08-04] MEDS: Isosorbide MONOnitrate (24 HR) 30 MG TAB.ER.24H PO SCH (08:28)
[2019-08-04] MEDS: carvediloL 6.25 MG TABLET PO SCH ×2 (08:28→16:58)
[2019-08-04] MEDS: Aspirin Enteric Coated 81 MG Tablet PO SCH (08:28)
[2019-08-04] MEDS: *HR* Heparin 5,000 UNIT/ML VIAL IVP PRN (11:49)
[2019-08-04] MEDS ORDERED: ISOVUE-370 200 ML INFUS..BTL ONE (12:59)
[2019-08-04] MEDS ORDERED: Heparin 1,000 UNITS/500 mL 500 ML ONE (12:59)
[2019-08-04] MEDS ORDERED: Nitroglycerin 1,000 MCG/10 ML VIAL IV ONE ×3 (13:17→13:44)
[2019-08-04] MEDS ORDERED: *HR* Heparin 10,000 UNIT/10 ML VIAL ONE ×2 (13:17→13:44)
[2019-08-04] MEDS ORDERED: 0.9 % Sodium Chloride 1,000 ML ONE ×2 (13:17→13:44)
[2019-08-04] MEDS ORDERED: *HR* FentaNYL (PF) 100 MCG/2 ML VIAL ONE (13:53)
[2019-08-04] MEDS ORDERED: *HR* Midazolam HCl 2 MG/2 ML VIAL ONE (13:54)
[2019-08-04] MEDS ORDERED: Tirofiban 12.5 MG/250ML 12.5 MG/250 ML BAG ONE (14:29)
[2019-08-04] MEDS: Fenofibrate 54 MG TABLET PO SCH (14:51)
[2019-08-04] MEDS: Finasteride 5 MG TABLET PO SCH (14:51)
[2019-08-04] MEDS: Gabapentin 300 MG CAPSULE PO SCH (14:51)
[2019-08-04] MEDS ORDERED: *HR* Nitroprusside 50 MG VIAL IVC ONE (14:54)
[2019-08-04] MEDS ORDERED: Tirofiban 12.5 MG/250ML 12.5 MG/250 ML BAG IVC SCH (15:15)
[2019-08-04] MEDS: Insulin DETEMIR 100 UNIT/ML X5UNITS SQ SCH (20:55)
[2019-08-04] MEDS: *HR* OxyCODONE/APAP 5/325 TABLET PO PRN (21:48)
[2019-08-04] MEDS: Apixaban 5 MG TABLET PO SCH (21:49)
[2019-08-04] MEDS: Acetaminophen 325 MG TABLET PO PRN (21:49)
[2019-08-05 01:11] LABS: Basophils % 0.2 %; Eosinophils # 0.1 K/mcL (0.0-0.6); Eosinophils % 1.4 %; Hematocrit 37.6 % (37.5-50.1); Hemoglobin 12.2 g/dL (12.9-16.9); Immature Granulocytes % 0.2 % (0-4); Lymphocytes # 2.5 K/mcL (0.6-4.6); Lymphocytes % 29.5 %; Mean Corpuscular HGB Conc 32.4 g/dL (31.6-35.5); Mean Corpuscular Hemoglobin 29.3 pg (28.0-33.3); Mean Corpuscular Volume 90.2 fL (83.0-100.0); Mean Platelet Volume 9.1 fL (9.4-12.4); Monocytes # 0.9 K/mcL (0.0-1.3); Monocytes % 10.5 %; Neutrophils # 4.8 K/mcL (1.6-8.9); Platelet Count 256 K/mcL (140-400); Red Blood Count 4.17 M/mcL (4.19-5.50); Red Cell Distribution Width 14.5 % (11.5-14.5); Segmented Neutrophils % 58.2 %; White Blood Count 8.3 K/mcL (4.3-11.1)
[2019-08-05 01:27] LABS: BUN/Creatinine Ratio 22 (6-26); Blood Urea Nitrogen 18 mg/dL (8-23); Calcium 9.3 mg/dL (8.6-10.3); Carbon Dioxide 24 mEq/L (23-29); Chloride 99 mEq/L (98-107); Glucose 253 mg/dL (70-105); Magnesium 1.9 mg/dL (1.6-2.6); Osmolality,Calculated 282 (280-300); Phosphorous 3.7 mg/dL (2.7-4.5); Potassium 4.2 mEq/L (3.5-5.1); Sodium 131 mEq/L (136-145); eGFR For African Americans > 60 (> 60); eGFR For Non-African Americans > 60 (> 60)
[2019-08-05] MEDS: *HR* HYDROcodone/Acet 5/325 mg TABLET PO PRN (01:47)
[2019-08-05 07:37] VITALS: BP 149/70
[2019-08-05] MEDS: Heparin 25,000 UNIT/250 ML D5W 25,000 UNIT/250 ML IV.SOLN IVC SCH (07:49)
[2019-08-05] MEDS: *HR* OxyCODONE/APAP 5/325 TABLET PO PRN (09:07)
[2019-08-05] MEDS: Gabapentin 300 MG CAPSULE PO SCH (09:07)
[2019-08-05] MEDS: Aspirin Enteric Coated 81 MG Tablet PO SCH (09:07)
[2019-08-05] MEDS: carvediloL 6.25 MG TABLET PO SCH (09:07)
[2019-08-05] MEDS: Apixaban 5 MG TABLET PO SCH (09:08)
[2019-08-05] MEDS: Finasteride 5 MG TABLET PO SCH (09:08)
[2019-08-05] MEDS: Insulin LISPRO 300 UNITS/3 ML VIAL SQ SCH (09:08)
[2019-08-05] MEDS: Fenofibrate 54 MG TABLET PO SCH (09:08)
[2019-08-05] MEDS: Isosorbide MONOnitrate (24 HR) 30 MG TAB.ER.24H PO SCH (09:08)
== END 2019-08-05 12:22 | disposition home or self-care (01) | DRG 251 ==
LOC: EMEROOARM 15:04 → 2ANU 15:04 → SUATTDRO 19:18 → 2ANU 20:49 → SUATTDRO 08-02 14:54 → 2NNU 08-04 16:57
PROVIDERS: ADMIT Internal Medicine; ATTEND Internal Medicine